=== PATIENT | male | born 1995 | race Caucasian/White ===

== ENCOUNTER 2021-02-14 13:37 | Inpatient (IN) | payer OTHER, MEDICARE, MEDICAID, SELFPAY ==
--- NOTE | ~2021-02-14 | XR_ITS ---
EXAMINATION: XR CHEST CLINICAL INFORMATION: Cough and wheezing COMPARISON: None TECHNIQUE: Frontal view of the chest was obtained. FINDINGS: No significant abnormality is noted involving the heart, lungs, mediastinum, bony thorax or soft tissues. XR/XR chest 1V IMPRESSION: Unremarkable chest examination.
--- NOTE | ~2021-02-14 | CT_ITS ---
EXAMINATION: CT CHEST WITHOUT CONTRAST CLINICAL INFORMATION: Wheezing. Leukocytosis. Shortness of breath. COMPARISON: Chest x-ray 02/15/2021 TECHNIQUE: Multidetector volumetric CT imaging of the chest was done. Axial MIP volume rendering provided. Sagittal and coronal reformatted images were obtained. This CT examination was performed using dose optimization techniques as appropriate, variously including the following: *Automated exposure control *Adjustment of mA and/or kV according to patient size (this includes techniques or standardized protocols for targeted exams where dose is matched to indication/reason for exam; i.e. extremities or head) *Use of iterative reconstruction technique DLP: 272 mGy-cm FINDINGS: LUNGS: There is a small groundglass opacity in the medial left upper lobe measuring approximately 1 x 2 x 1.5 cm Small focal pleural thickening adjacent 3 mm at the major fissure in the right lung axial image 375/ 637 series 7. Lungs are otherwise normally aerated. Central bronchial airways are open. No bronchiectasis. No interstitial lung disease. MEDIASTINUM: No mediastinal mass or significant lymphadenopathy. The heart size is normal. No pericardial effusion. PLEURA: There is no pleural effusion. No pleural mass or thickening. AXILLA: No lymphadenopathy. UPPER ABDOMEN: Unremarkable. OSSEOUS STRUCTURES: Unremarkable. CT/CT chest wo con IMPRESSION: 1 x 2 x 1.5 cm groundglass opacity in the medial left upper lobe. Nonspecific. Could be related to inflammation or infection. Consider follow-up CAT scan in 3 months. The Fleischner Society recommendations for incidental sub-solid pulmonary nodules are as follows: Solitary pure ground glass nodule < or = to 5 mm: No follow up needed. Solitary pure ground glass nodule > 5 mm: Follow up CT at 3 months; if unchanged, annual CT for at least 3 years. Solitary part-solid nodule: Follow up CT at 3 months; if persistent and solid component < 5 mm, annual CT for at least 3 years. If persistent and solid component > or = 5 mm, biopsy or resection. Multiple pure ground glass sub-solid nodules < or = to 5mm: CT at 2 and 4 years. Multiple pure ground glass sub-solid nodules > 5mm, no dominant lesion: Follow up CT at 3 months; if unchanged, annual CT for at least 3 years. Dominant nodule(s) with part-solid or solid component: Follow up CT at 3 months; if persistent, biopsy or resection.
[2021-02-14 13:43] VITALS: BP 150/60; BP 159/119; PULSE 88; PULSE 98; RESP 18; TEMP 36.4; O2SAT 96; O2SAT 98; BMI 32.1
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
[2021-02-14 14:41] LABS: COVID-19 Test Negative (Negative)
--- NOTE | 2021-02-14 14:58 | PHA.MEDREC ---
Pharmacy Consult ? Medication Reconciliation Pharmacy has completed the medication reconciliation. Patient only reports taking prozac and benadryl 3-5 times a week, but takes them together. Thanks Luis Giraldo Pharm D
[2021-02-14 15:04] LABS: Amphetamine Screen Urine Not Detected (Not Detect); Barbiturates, Urine Not Detected (Not Detect); Benzodiazepines Screen Urine Not Detected (Not Detect); Cocaine Screen Urine Not Detected (Not Detect); Fentanyl, urine Not Detected (Not Detect); Opiate Screen Urine Not Detected (Not Detect); Phencyclidine Screen Urine Not Detected (Not Detect)
[2021-02-14 15:09] LABS: Cannabinoid Screen Urine POSITIVE (Not Detect)
[2021-02-14 15:31] VITALS: BP 132/91
[2021-02-14 15:50] LABS: MANUAL DIFF FLAG NO
[2021-02-14 15:51] LABS: Basophils Absolute Auto 0.1 X10*3/uL (0.0-0.2); Basophils Percent Auto 0.4 % (0-2); Eosinophils Absolute Auto 0.4 X10*3/uL (0.0-0.4); Eosinophils Percent Auto 2.9 % (0-4); Hematocrit 48.5 % (42.0-52.0); Hemoglobin 16.5 g/dl (14.0-18.0); Imm Gran Abs Auto 0.04 X10*3/uL (0.00-0.03); Imm Gran Pct Auto 0.3 % (0.0-0.4); Lymphocytes Absolute Auto 1.9 X10*3/uL (1.2-4.9); Lymphocytes Percent Auto 14.3 % (20-40); Mean Corpuscular Hemoglobin 28.7 pg (27.0-33.0); Mean Corpuscular Volume 84.3 fL (80.0-98.0); Mean Platelet Volume 10.9 fL (9.4-12.4); Monocytes Absolute Auto 0.9 X10*3/uL (0.1-1.2); Monocytes Percent Auto 6.7 % (2-11); Neutrophils Absolute Auto 10.1 x10*3/uL (2.0-8.3); Neutrophils Percent Auto 75.4 % (45-73); Platelet Count 275 X10*3/uL (160-400); Red Blood Count 5.75 X10*6/uL (4.60-5.80); Red Cell Distribution Width 12.8 % (11.0-16.0); White Blood Count 13.4 X10*3/uL (4.8-10.8)
[2021-02-14 16:09] LABS: Ethanol < 10 mg/dL
[2021-02-14 16:13] LABS: Alanine Aminotransferase 14 U/L (0-40); Albumin Level 4.5 g/dL (3.5-5.0); Alkaline Phosphatase 75 U/L (39-117); Anion Gap 11 (12-20); Aspartate Amino Transferase 19 U/L (5-37); Bilirubin Total 0.5 mg/dL (0.0-1.0); Blood Urea Nitrogen 7 mg/dL (9-16); Calcium 9.9 mg/dL (8.4-10.2); Carbon Dioxide 25 mmol/L (22-29); Chloride 107 mmol/L (96-108); Creatinine Clr Calc Pharmacy 155.9; Estimated Glomerular Filt Rate > 60; Glucose Random 110 mg/dL (60-115); Potassium 3.9 mmol/L (3.3-5.1); Sodium 139 mmol/L (135-145); Total Protein 7.6 g/dL (6.5-8.0)
[2021-02-14] MEDS: diphenhydrAMINE HCL 25 MG TABLET 50 MG PO (20:34)
[2021-02-14] MEDS: FLUoxetine HCl 20 MG CAPSULE 60 MG PO (20:34)
[2021-02-14] MEDS: Albuterol Sulfate 90 MCG 8 GM INHALER 2 PUFF INHALE (20:34)
[2021-02-15] VITALS (8 sets, daily range): BP systolic 119–150; BP diastolic 76–98; PULSE 95–122; RESP 16–22; TEMP 36.3–36.9; O2SAT 90–96
--- NOTE | 2021-02-15 06:12 | PC.NURSE ---
pt is now in the general area of the pod and is asking if he could use his inhaler., pt states since he had his room door closed and has not smoked cig or dallin in over one week he is having a slight cough upon waking, lung alston have fine wheezing in upper lobes clears with clearing his throat.
--- NOTE | 2021-02-15 06:23 | PC.NURSE ---
provider made aware of the pt request to use his inhaler again. no orders received and will monitor the pt. pt displays no s/s of sob or resp distress, skin pink warm and dry. pt clearing his throat being a smoker. will up date in report.
[2021-02-15] MEDS: Albuterol Sulfate 90 MCG 8 GM INHALER 2 PUFF INHALE ×4 (07:30→23:37)
--- NOTE | 2021-02-15 09:09 | PC.NURSE ---
7am Patient sitting in common area. Calm and cooperative, skin pWD, ambulates with steady gait. Is aware of bedsearch status. Requesting use of inhailer. Pt offered and declined nicotine replacement. Pt used inhaler and spacer with good effect at 7:30. Provider to correct med order to q4 HR PRN use.
--- NOTE | 2021-02-15 10:30 | PC.NURSE ---
has been seen by N for MSU. continues to be inpatient bedsearch. aprox 105 pt c/o increased SOB. Has audible wheezing, moderate air movement in all Lung alston, slight diaphoresis and dry cough. saO2 92% HR110 requesting inhailer but isn't due untill 1130. provider aware.
[2021-02-15] MEDS: Albuterol/Iprat 2.5/0.5MG 3 ML AMPUL.NEB INHALE (10:45)
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
--- NOTE | 2021-02-15 15:12 | PC.NURSE ---
slight increased work of breathing. LS moderate wheezing and good air movement. provider aware and duoneb ordered. Skin pwd. no diaphoresis.
[2021-02-15] MEDS: Albuterol Sulfate (0.083%) 2.5 MG/3 ML VIAL.NEB 5 MG INHALE (15:45)
--- NOTE | 2021-02-15 19:50 | PC.NURSE ---
increased WOB, slightly diaphoretic, pale, wheezing. provider aware and additional meds ordered. sao2 90% HR 122
[2021-02-15] MEDS: predniSONE 20 MG TABLET 60 MG PO (19:57)
[2021-02-15] MEDS: Fluticasone Propionate 100 MCG BLST.W.DEV 1 PUFF INHALE (20:39)
[2021-02-15] MEDS: FLUoxetine HCl 20 MG CAPSULE 60 MG PO (20:40)
--- NOTE | 2021-02-15 20:47 | PC.NURSE ---
after xopenex, prednisone, and flovent pt reports feeling much better. color is improved. no diaphoresis. ambulatory in department w/o SOB. declined Benadryl b/c i think it made my breathing worse last night
[2021-02-16 03:18] VITALS: BP 134/81; PULSE 109; RESP 17; TEMP 36.8; O2SAT 92
--- NOTE | 2021-02-16 06:13 | PC.NURSE ---
Patient did not sleep whole night, tossing turning, patient is currently exhibiting asthmatic exacerbation, coughing and wheezing, administered Ventolin 2 puff x 2 during overnight shift with + effect, VS at baseline with SpO2 at 93% at RA, patient's thought process coherent, patient's disposition section 12 inpatient bed search, behavior appropriate, medication compliant, will continue to monitor.
[2021-02-16] MEDS: Fluticasone Propionate 100 MCG BLST.W.DEV 1 PUFF INHALE ×2 (07:26→20:33)
--- NOTE | 2021-02-16 07:28 | PC.NURSE ---
patient appears to remain at rest at present respirations are even and unlabored, patient appears in no distress
[2021-02-16] MEDS: predniSONE 20 MG TABLET 60 MG PO (07:55)
[2021-02-16 07:57] VITALS: BP 129/74; PULSE 112; RESP 13; TEMP 37.2; O2SAT 92
[2021-02-16] MEDS: Albuterol Sulfate 90 MCG 8 GM INHALER 2 PUFF INHALE ×3 (08:53→17:25)
[2021-02-16] MEDS: FLUoxetine HCl 20 MG CAPSULE 60 MG PO (20:32)
[2021-02-16] MEDS: diphenhydrAMINE HCL 25 MG TABLET 50 MG PO (20:33)
[2021-02-17] MEDS: Albuterol Sulfate 90 MCG 8 GM INHALER 2 PUFF INHALE ×5 (03:41→20:38)
[2021-02-17 03:44] VITALS: BP 137/81; PULSE 101; RESP 18; TEMP 36.4; O2SAT 92
--- NOTE | 2021-02-17 06:04 | PC.NURSE ---
Patient slept through the night, no distress observed/reported, patient had brief episode of coughing PRN Ventolin 2 puff at 0341 with + effect, behavior appropriate, medication compliant, VSS, disposition is section 12 inpatient bed search, will continue to monitor.
--- NOTE | 2021-02-17 07:17 | PC.NURSE ---
patient appears to remain at rest at present respirations are even and unlabored, patient appears in no distress
[2021-02-17] MEDS: predniSONE 20 MG TABLET 60 MG PO (07:49)
[2021-02-17] MEDS: Fluticasone Propionate 100 MCG BLST.W.DEV 1 PUFF INHALE ×2 (07:49→20:38)
--- NOTE | 2021-02-17 12:54 | PC.NURSE ---
mother (chelly) left a temp phone number of [phone]
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
--- NOTE | 2021-02-17 13:52 | ECG_ITS ---
Test Reason : medclearance Blood Pressure : / mmHG Vent. Rate : 083 BPM Atrial Rate : 083 BPM P-R Int : 142 ms QRS Dur : 100 ms QT Int : 362 ms P-R-T Axes : 052 083 003 degrees QTc Int : 425 ms Normal sinus rhythm Normal ECG When compared with ECG of 20-JAN-2018 17:33, No significant change was found Referred By: Padmini Rodriguez Electronically Signed By:TRACEY PULIDO
[2021-02-17 17:04] VITALS: BP 141/80; PULSE 96; RESP 20; TEMP 36.1; O2SAT 94
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
[2021-02-17 20:16] VITALS: BP 117/88; PULSE 82; RESP 18; TEMP 37.1; O2SAT 93
[2021-02-17] MEDS: FLUoxetine HCl 20 MG CAPSULE 60 MG PO (20:38)
[2021-02-17] MEDS: diphenhydrAMINE HCL 25 MG TABLET 50 MG PO (20:38)
[2021-02-18] MEDS: Albuterol Sulfate 90 MCG 8 GM INHALER 2 PUFF INHALE ×2 (04:15→14:07)
[2021-02-18 08:24] VITALS: BP 147/80; PULSE 93; RESP 16; TEMP 36.3; O2SAT 91
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
[2021-02-18] MEDS: Fluticasone Propionate 100 MCG BLST.W.DEV 1 PUFF INHALE (08:29)
[2021-02-18] MEDS: predniSONE 20 MG TABLET 60 MG PO (08:30)
--- NOTE | 2021-02-18 09:31 | MHC.CLN ---
NUTRITION PEANUT ALLERGY, SEVERE, ANAPHYLAXIS PER MEDICAL RECORD. PATIENT STATED THAT HE EATS PEANUTS. DINING SERVICES AWARE OF PEANUT ALLERGY AND SIGN PRESENT ON UNIT DOOR PEANUT ALLERGY ON UNIT . CONTINUE WITH PEANUT ALLERGY. REPORTED THAT LOST 40# OVER A YEAR. NO PRIOR WEIGHTS VIEWED. CURRENT APPETITE GOOD.
[2021-02-18 10:53] LABS: MANUAL DIFF FLAG NO
[2021-02-18 10:56] LABS: Basophils Absolute Auto 0.1 X10*3/uL (0.0-0.2); Basophils Percent Auto 0.6 % (0-2); Eosinophils Absolute Auto 0.5 X10*3/uL (0.0-0.4); Eosinophils Percent Auto 4.5 % (0-4); Hematocrit 46.7 % (42.0-52.0); Hemoglobin 16.1 g/dl (14.0-18.0); Imm Gran Abs Auto 0.04 X10*3/uL (0.00-0.03); Imm Gran Pct Auto 0.3 % (0.0-0.4); Lymphocytes Absolute Auto 1.5 X10*3/uL (1.2-4.9); Lymphocytes Percent Auto 12.6 % (20-40); Mean Corpuscular HGB Conc 34.5 g/dl (31.0-36.0); Mean Corpuscular Hemoglobin 29.3 pg (27.0-33.0); Mean Corpuscular Volume 85.1 fL (80.0-98.0); Mean Platelet Volume 10.6 fL (9.4-12.4); Monocytes Absolute Auto 0.6 X10*3/uL (0.1-1.2); Monocytes Percent Auto 4.8 % (2-11); Neutrophils Absolute Auto 9.1 x10*3/uL (2.0-8.3); Neutrophils Percent Auto 77.2 % (45-73); Platelet Count 257 X10*3/uL (160-400); Red Blood Count 5.49 X10*6/uL (4.60-5.80); White Blood Count 11.8 X10*3/uL (4.8-10.8)
[2021-02-18 20:16] VITALS: BP 125/60; PULSE 79; RESP 16; TEMP 36.6; O2SAT 97
[2021-02-18] MEDS: OLANZapine ODT 10 MG TAB.RAPDIS 20 MG TRANSLINGU (20:38)
[2021-02-18] MEDS: diphenhydrAMINE HCL 25 MG TABLET 50 MG PO (20:38)
[2021-02-19 08:39] LABS: Estimated Average Glucose 108 mg/dL; Hemoglobin A1c % 5.4 %
[2021-02-19] MEDS: Fluticasone Propionate 100 MCG BLST.W.DEV 1 PUFF INHALE ×2 (08:46→20:35)
[2021-02-19] MEDS: predniSONE 20 MG TABLET 60 MG PO (08:46)
[2021-02-19 08:51] VITALS: BP 117/64; PULSE 82; RESP 16; TEMP 36.8; O2SAT 93
[2021-02-19 09:14] LABS: Cholesterol 160 mg/dL; HDL Cholesterol 48 mg/dL; LDL Cholesterol Calculated 90 mg/dl; Triglycerides 111 mg/dL
[2021-02-19] MEDS: Albuterol Sulfate 90 MCG 8 GM INHALER 2 PUFF INHALE ×2 (09:49→14:08)
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
[2021-02-19 20:31] VITALS: BP 146/79; PULSE 95; TEMP 36.9; O2SAT 95
[2021-02-19] MEDS: OLANZapine ODT 10 MG TAB.RAPDIS 20 MG TRANSLINGU (20:33)
[2021-02-19] MEDS: diphenhydrAMINE HCL 25 MG TABLET 50 MG PO (20:34)
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
[2021-02-20] MEDS: Fluticasone Propionate 100 MCG BLST.W.DEV 1 PUFF INHALE (21:08)
[2021-02-20] MEDS: diphenhydrAMINE HCL 25 MG TABLET 50 MG PO (21:08)
[2021-02-20] MEDS: OLANZapine ODT 10 MG TAB.RAPDIS 30 MG TRANSLINGU (21:08)
[2021-02-21] MEDS: Fluticasone Propionate 100 MCG BLST.W.DEV 1 PUFF INHALE ×2 (08:21→21:24)
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
[2021-02-21 20:44] VITALS: BP 180/92; PULSE 102; RESP 20; TEMP 36.8; O2SAT 95
[2021-02-21] MEDS: OLANZapine ODT 10 MG TAB.RAPDIS 30 MG TRANSLINGU (21:23)
[2021-02-21] MEDS: diphenhydrAMINE HCL 25 MG TABLET 50 MG PO (21:23)
[2021-02-22 06:00] VITALS: BP 137/92; PULSE 114; RESP 16; TEMP 36.6; O2SAT 97
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
[2021-02-22] MEDS: diphenhydrAMINE HCL 25 MG TABLET 50 MG PO (21:16)
[2021-02-22] MEDS: OLANZapine ODT 10 MG TAB.RAPDIS 30 MG TRANSLINGU (21:16)
[2021-02-22] MEDS: Fluticasone Propionate 100 MCG BLST.W.DEV 1 PUFF INHALE (21:18)
[2021-02-22 21:30] VITALS: RESP 18
[2021-02-23 09:50] VITALS: BP 143/93; PULSE 114; RESP 16; TEMP 36.7; O2SAT 95
[2021-02-23] MEDS: Fluticasone Propionate 100 MCG BLST.W.DEV 1 PUFF INHALE ×2 (09:50→20:53)
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
[2021-02-23] MEDS: diphenhydrAMINE HCL 25 MG TABLET 50 MG PO (20:52)
[2021-02-23] MEDS: OLANZapine ODT 10 MG TAB.RAPDIS 30 MG TRANSLINGU (20:53)
[2021-02-23 21:03] VITALS: BP 134/82; PULSE 110; TEMP 36.6; O2SAT 95
[2021-02-24 08:10] VITALS: BP 136/91; PULSE 105; RESP 17; TEMP 36.7; O2SAT 96
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
[2021-02-24] MEDS: Fluticasone Propionate 100 MCG BLST.W.DEV 1 PUFF INHALE ×2 (09:45→20:20)
[2021-02-24] MEDS: OLANZapine ODT 10 MG TAB.RAPDIS 30 MG TRANSLINGU (20:16)
[2021-02-24] MEDS: diphenhydrAMINE HCL 25 MG TABLET 50 MG PO (20:16)
[2021-02-24 21:15] VITALS: BP 143/96; PULSE 123; TEMP 37.1
[2021-02-25] MEDS: Fluticasone Propionate 100 MCG BLST.W.DEV 1 PUFF INHALE (08:14)
[2021-02-25 08:16] VITALS: BP 164/93; PULSE 103; RESP 17; TEMP 36.7; O2SAT 93
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
[2021-02-25 18:11] VITALS: BP 171/94; PULSE 128; RESP 17; TEMP 36.8; O2SAT 97
[2021-02-25 19:55] VITALS: BP 156/86; PULSE 118; RESP 20; TEMP 37.1; O2SAT 94
[2021-02-25] MEDS: diphenhydrAMINE HCL 25 MG TABLET 50 MG PO (20:09)
[2021-02-25] MEDS: OLANZapine ODT 10 MG TAB.RAPDIS 30 MG TRANSLINGU (20:09)
[2021-02-26 08:19] VITALS: BP 145/97; PULSE 111; RESP 16; TEMP 36.7; O2SAT 97
[2021-02-26 11:36] VITALS: BMI 30.9
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
[2021-02-26] MEDS: diphenhydrAMINE HCL 25 MG TABLET 50 MG PO (20:11)
[2021-02-26] MEDS: OLANZapine ODT 10 MG TAB.RAPDIS 30 MG TRANSLINGU (20:11)
[2021-02-26 20:15] VITALS: BP 133/66; PULSE 119; TEMP 36.4; O2SAT 96
[2021-02-27] MEDS: Fluticasone Propionate 100 MCG BLST.W.DEV 1 PUFF INHALE (10:34)
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
== END 2021-02-27 13:06 | disposition home or self-care (01) | DRG 750 ==
LOC: HO.ED 02-17 17:23 → HO.PADLT16 02-17 18:04
PROVIDERS: Physician Assistant; Admitting Provider Psychiatry & Neurology Psychiatry; Emergency Provider Emergency Medicine; PCP Hospitalist; Visit Provider Social Worker
DX: F25.0 Schizoaffective disorder, bipolar type (principal); Z20.822 Contact with and (suspected) exposure to COVID-19; Z79.51 Long term (current) use of inhaled steroids; Z79.899 Other long term (current) drug therapy
CPT/HCPCS: 36415; 71045; 71250; 80053; 80061; 80307; 82077; 83036; 85025; 87635; 93005; 99285; Q0163

== ENCOUNTER 2021-03-20 14:43 | Inpatient (IN) | payer OTHER, MEDICARE, MEDICAID, SELFPAY ==
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
[2021-03-20 15:17] VITALS: BP 150/100; BP 154/80; PULSE 108; PULSE 97; RESP 18; TEMP 36.7; O2SAT 98; BMI 32.0
[2021-03-20 16:19] LABS: COVID-19 Test Negative (Negative); IDNOW Serial# 9DD0AD1C
[2021-03-20 19:25] LABS: MANUAL DIFF FLAG NO
[2021-03-20 19:27] LABS: Basophils Absolute Auto 0.1 X10*3/uL (0.0-0.2); Basophils Percent Auto 0.6 % (0-2); Eosinophils Absolute Auto 0.7 X10*3/uL (0.0-0.4); Hematocrit 43.3 % (42.0-52.0); Hemoglobin 14.7 g/dl (14.0-18.0); Imm Gran Abs Auto 0.04 X10*3/uL (0.00-0.03); Imm Gran Pct Auto 0.4 % (0.0-0.4); Lymphocytes Absolute Auto 2.5 X10*3/uL (1.2-4.9); Lymphocytes Percent Auto 24.7 % (20-40); Mean Corpuscular HGB Conc 33.9 g/dl (31.0-36.0); Mean Corpuscular Hemoglobin 29.5 pg (27.0-33.0); Mean Corpuscular Volume 86.8 fL (80.0-98.0); Mean Platelet Volume 10.6 fL (9.4-12.4); Monocytes Absolute Auto 1.1 X10*3/uL (0.1-1.2); Monocytes Percent Auto 10.3 % (2-11); Neutrophils Absolute Auto 5.9 x10*3/uL (2.0-8.3); Platelet Count 251 X10*3/uL (160-400); Red Blood Count 4.99 X10*6/uL (4.60-5.80); Red Cell Distribution Width 13.2 % (11.0-16.0); White Blood Count 10.3 X10*3/uL (4.8-10.8)
[2021-03-20 19:40] LABS: Ethanol < 10 mg/dL
[2021-03-20 19:46] LABS: Alanine Aminotransferase 41 U/L (0-40); Alkaline Phosphatase 64 U/L (39-117); Anion Gap 8 (12-20); Aspartate Amino Transferase 25 U/L (5-37); Bilirubin Total 0.3 mg/dL (0.0-1.0); Blood Urea Nitrogen 12 mg/dL (9-16); Calcium 9.2 mg/dL (8.4-10.2); Carbon Dioxide 29 mmol/L (22-29); Chloride 108 mmol/L (96-108); Creatinine Clr Calc Pharmacy 152.9; Estimated Glomerular Filt Rate > 60; Glucose Random 94 mg/dL (60-115); Potassium 4.1 mmol/L (3.3-5.1); Sodium 141 mmol/L (135-145); Total Protein 6.8 g/dL (6.5-8.0)
[2021-03-20 20:24] LABS: Valproate < 2.0 mcg/mL (50.0-100.0)
[2021-03-20] MEDS: OLANZapine 10 MG TABLET 30 MG PO (21:03)
--- NOTE | 2021-03-21 | ECG_ITS ---
Test Reason : med clearance Blood Pressure : / mmHG Vent. Rate : 084 BPM Atrial Rate : 084 BPM P-R Int : 166 ms QRS Dur : 098 ms QT Int : 364 ms P-R-T Axes : 064 077 020 degrees QTc Int : 430 ms Sinus rhythm with marked sinus arrhythmia Otherwise normal ECG When compared with ECG of 17-FEB-2021 13:52, No significant change was found Referred By: Erik White Electronically Signed By:Venkatesh Owen
[2021-03-21 05:12] VITALS: BP 149/80; PULSE 73; RESP 20; TEMP 36.8; O2SAT 95
--- NOTE | 2021-03-21 05:52 | PC.NURSE ---
Patient slept through the night, no distress observed/reported, urine pending at this time, medication compliant, behavior appropriate and supportive here but was observed agitated over phone call with his mother, MAYRA assessed the patient, recommended respite bed search, if patient decline or refused the respite plan, patient's disposition will be changed to inpatient bed search, appetite good, elimination intact, gait independent, VSS, will continue to monitor.
[2021-03-21 06:44] LABS: Amphetamine Screen Urine Not Detected (Not Detect); Barbiturates, Urine Not Detected (Not Detect); Benzodiazepines Screen Urine Not Detected (Not Detect); Cannabinoid Screen Urine POSITIVE (Not Detect); Cocaine Screen Urine Not Detected (Not Detect); Fentanyl, urine Not Detected (Not Detect); Opiate Screen Urine Not Detected (Not Detect); Phencyclidine Screen Urine Not Detected (Not Detect)
--- NOTE | 2021-03-21 07:05 | PC.NURSE ---
patient appears to remain at rest at present, respirations are even and unlabored, patient appears in no distress
--- NOTE | 2021-03-21 14:31 | PC.NURSE ---
patient observed making angry sounding phone calls to mother.
--- NOTE | 2021-03-21 16:24 | PC.NURSE ---
client is doing some random calling out periodically.
[2021-03-21 17:52] VITALS: BMI 26.4
[2021-03-21 18:00] VITALS: BP 140/75; PULSE 97; RESP 18; TEMP 36.9; O2SAT 95
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
[2021-03-21 20:01] VITALS: BP 131/78; PULSE 93; RESP 16; TEMP 36.8; O2SAT 96
[2021-03-21] MEDS: OLANZapine 10 MG TABLET 30 MG PO (20:44)
[2021-03-22 08:46] LABS: Alanine Aminotransferase 50 U/L (0-40); Albumin Level 4.4 g/dL (3.5-5.0); Alkaline Phosphatase 66 U/L (39-117); Anion Gap 14 (12-20); Aspartate Amino Transferase 46 U/L (5-37); Bilirubin Total 0.6 mg/dL (0.0-1.0); Blood Urea Nitrogen 14 mg/dL (9-16); Calcium 9.7 mg/dL (8.4-10.2); Carbon Dioxide 26 mmol/L (22-29); Chloride 106 mmol/L (96-108); Cholesterol 187 mg/dL; Creatinine Clr Calc Pharmacy 132.9; Estimated Glomerular Filt Rate > 60; Glucose Fasting 99 mg/dL (60-99); HDL Cholesterol 58 mg/dL; LDL Cholesterol Calculated 106 mg/dl; Potassium 4.8 mmol/L (3.3-5.1); Sodium 141 mmol/L (135-145); Total Protein 8.2 g/dL (6.5-8.0); Triglycerides 116 mg/dL
[2021-03-22 09:00] VITALS: BP 160/92; PULSE 102; RESP 18; TEMP 36.6; O2SAT 95
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
[2021-03-22] MEDS: LORazepam 1 MG TABLET PO (11:11)
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
[2021-03-22 18:00] VITALS: BP 141/78; PULSE 99; RESP 18; TEMP 36.7; O2SAT 97
[2021-03-22] MEDS: OLANZapine 10 MG TABLET 30 MG PO (20:23)
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
--- NOTE | 2021-03-22 20:45 | PC.NURSE ---
Patient submitted 3 day note.
[2021-03-23 08:00] VITALS: BP 147/88; PULSE 106; TEMP 36.4; O2SAT 95
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
[2021-03-23 21:12] VITALS: BP 132/87; PULSE 97; TEMP 36.5; O2SAT 96
[2021-03-23] MEDS: OLANZapine 10 MG TABLET 30 MG PO (21:14)
[2021-03-24 08:00] VITALS: BP 155/92; PULSE 116; TEMP 36.4; O2SAT 95
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
[2021-03-24] MEDS: OLANZapine 10 MG TABLET 30 MG PO (21:09)
[2021-03-24 21:17] VITALS: BP 142/83; PULSE 98; RESP 16; TEMP 36.7; O2SAT 94
[2021-03-25 08:30] VITALS: BP 132/67; PULSE 95; RESP 16; TEMP 36.2; O2SAT 96
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
[2021-03-25] MEDS: LORazepam 1 MG TABLET PO (18:31)
[2021-03-25 20:52] VITALS: BP 122/70; PULSE 107; RESP 16; TEMP 36.3; O2SAT 97
[2021-03-25] MEDS: OLANZapine 10 MG TABLET 30 MG PO (21:09)
[2021-03-26 07:00] VITALS: BMI 35.4
[2021-03-26 08:45] VITALS: BP 129/80; PULSE 101; RESP 16; TEMP 36.6; O2SAT 97
[2021-03-26] MEDS: amLODIPine Besylate 2.5 MG TABLET PO (09:58)
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
[2021-03-26 18:00] VITALS: BP 148/64; PULSE 91; TEMP 36.6
[2021-03-26] MEDS: OLANZapine 10 MG TABLET 30 MG PO (20:14)
[2021-03-26] MEDS: HaloperidoL 5 MG TABLET PO (20:15)
[2021-03-27 06:30] VITALS: BP 119/54; PULSE 88; RESP 18; TEMP 36.1; O2SAT 96
[2021-03-27 08:45] VITALS: BP 135/73; TEMP 27.2
[2021-03-27] MEDS: amLODIPine Besylate 2.5 MG TABLET PO (09:10)
--- NOTE | 2021-03-27 13:27 | P.PNPSI_ITS ---
Subjective Subjective Date of Service: 03/27/21 Reason For Visit: psychotic agitation Subjective Notes: Conditional Voluntary Interim History: Pt cwith some suspiciousness towards staff, but mostly in bed, no interacting with peers. He reports he slept well at time, eating well. He denies SI/HI. He continues to agree to go to [facility] through [facility]. Medication Compliance: Yes Side effects from medications: No Review of Systems Review of Systems Constitutional : No Fever, No Chills ENT/Mouth : No Ear Pain, No Nasal Congestion, No sore throat Eyes: No Eye Pain, No Swelling, No Redness Cardiovascular : No Chest Pain, No SOB Respiratory : No Cough, No Sputum, No Dyspnea Gastrointestinal : No Nausea, No Vomiting, No Diarrhea, No Hematochezia, No Melena Genitourinary : No Dysuria, No Urinary Frequency, No Hematuria Musculoskeletal : No Myalgias Skin : No Skin Lesions, No rash Neuro : No Weakness, No Numbness, No Paresthesias, No Dizziness, No Headache Psych : positive Anxiety, no Depression, no SI/HI All other systems reviewed and are negative Yes all other systems are reviewed and are negative Mental Status Exam Mental Status Exam Narrative: Appearance: casually groomed, more visible in the unit, fair hygiene, in NAD Behavior:less guarded psychomotor: no agitation or retardation noted Speech:clear, normal rate/rhythm, spontaneous Thought process: largely linear and logical Thought content: no delusions or paranoia expressed, talking about how his mother deserves physical aggression Mood: fine Affect: constricted, irritable at times SI:none voiced HI:none voiced VH/AH: +AH of commentary on his life and actions Insight/judgment: poor x 2. Memory/cog: alert, oriented x 3. Diagnostics Vital Signs (24Hr): Vital Signs - 24 hr 03/26/21 18:00 03/27/21 06:30 03/27/21 08:45 Temperature 97.8 F 97 F 81 F L Pulse Rate 91 88 Respiratory Rate 18 Blood Pressure 148/64 H 119/54 L 135/73 Pulse Oximetry 96 BMI result Body Mass Index 35.4 Labs Results: 03/20/21 19:20 03/22/21 08:09 Medications Medications Current Medications Acetaminophen (Acetaminophen 325 Mg Tablet) 650 mg PO Q6H PRN PRN Reason: Headache/Pain Mild Scale (1-3) Al Hydroxide/Mg Hydroxide (Magnesium Hydrox/Alum Hydrox 30 Ml Oral.Susp) 30 ml PO Q6H PRN PRN Reason: Heartburn/Nausea Albuterol Sulfate (Albuterol Sulfate 90 Mcg 8 Gm Inhaler) 2 puff INHALE QID PRN PRN Reason: Wheezing Amlodipine Besylate (Amlodipine Besylate 2.5 Mg Tablet) 2.5 mg PO DAILY JUANJO; Protocol Last Admin: 03/27/21 09:10 Dose: 2.5 mg Documented by: Haloperidol (Haloperidol 5 Mg Tablet) 5 mg PO BEDTIME JUANJO Last Admin: 03/26/21 20:15 Dose: 5 mg Documented by: Hydroxyzine HCl (Hydroxyzine Hcl 25 Mg Tablet) 25 mg PO BEDTIME PRN PRN Reason: Anxiety Magnesium Hydroxide (Milk Of Magnesia 30 Ml Oral.Susp) 30 ml PO DAILY PRN PRN Reason: Constipation Olanzapine (Olanzapine 10 Mg Tablet) 30 mg PO BEDTIME [facility] Last Admin: 03/26/21 20:14 Dose: 30 mg Documented by: Trazodone HCl (Trazodone Hcl 50 Mg Tablet) 50 mg PO BEDTIME PRN PRN Reason: Insomnia Allergies Allergies Allergy/AdvReac Type Severity Reaction Status Date / Time peanut [PEANUTS] Allergy Severe ANAPHYLAXIS Verified 02/15/21 16:07 benztropine [From Cogentin] AdvReac Chest Pain Verified 02/16/21 13:12 Assessment & Plan Assessment & Plan (1) Schizoaffective disorder, bipolar type: Status: Acute Code(s): F25.0 - Schizoaffective disorder, bipolar type (2) Aggressive behavior, adult: Status: Acute Code(s): R46.89 - Other symptoms and signs involving appearance and behavior Assessment and Plan: Patient admitted on a conditional voluntary history this schizoaffective disord er unclear if patient has been taking olanzapine regularly has reportedly been physically aggressive and threatening toward his mother who he will edges has been forcing him not to move out so she can continue using his money. Patient denies thoughts of harm to others has [facility] case management. This point appears safe for patient to return home there is a history of longstanding complex relationship patient needs to be evaluated for safety to others admitted on a conditional PLAN:3 day notice, 15 minutes checks 1. Continue Olanzapine 30mg po qhs. Start hadol 5mg po qhs on 03/26 2. Obtain collateral information 3. Aftercare planning coordination of care with [facility]. I spent minutes with the patient and/or on the patient floor today, greater than?50% of which was spent counseling/coordinating care. Reason for contiued inpatient stay Substantial Risk for: inability to function
[2021-03-27 17:33] VITALS: BP 120/59; PULSE 99; TEMP 37
[2021-03-27] MEDS: OLANZapine 10 MG TABLET 30 MG PO (20:17)
[2021-03-27] MEDS: HaloperidoL 5 MG TABLET PO (20:17)
[2021-03-28 08:00] VITALS: BP 156/73; PULSE 99; TEMP 36.3; O2SAT 97
[2021-03-28] MEDS: amLODIPine Besylate 2.5 MG TABLET PO (08:50)
--- NOTE | 2021-03-28 13:01 | HO.PSYCHPN ---
Subjective Subjective Date of Service: 03/28/21 Reason For Visit: psychotic agitation Subjective Notes: Conditional Voluntary Interim History: Pt somewhat guarded, reports doing well. He reports sleeping and eating well. He denies SI/HI. He denies VH/AH. some suspiciousness towards staff, but mostly in bed, no interacting with peers. He reports he slept well at time, eating well. He denies SI/HI. He continues to agree to go to [facility] through [facility]. Review of Systems Review of Systems Constitutional : No Fever, No Chills ENT/Mouth : No Ear Pain, No Nasal Congestion, No sore throat Eyes: No Eye Pain, No Swelling, No Redness Cardiovascular : No Chest Pain, No SOB Respiratory : No Cough, No Sputum, No Dyspnea Gastrointestinal : No Nausea, No Vomiting, No Diarrhea, No Hematochezia, No Melena Genitourinary : No Dysuria, No Urinary Frequency, No Hematuria Musculoskeletal : No Myalgias Skin : No Skin Lesions, No rash Neuro : No Weakness, No Numbness, No Paresthesias, No Dizziness, No Headache Psych : positive Anxiety, no Depression, no SI/HI All other systems reviewed and are negative Yes all other systems are reviewed and are negative Mental Status Exam Mental Status Exam Narrative: Appearance: casually groomed, more visible in the unit, fair hygiene, in NAD Behavior:less guarded psychomotor: no agitation or retardation noted Speech:clear, normal rate/rhythm, spontaneous Thought process: largely linear and logical Thought content: no delusions or paranoia expressed, talking about how his mother deserves physical aggression Mood: fine Affect: constricted, irritable at times SI:none voiced HI:none voiced VH/AH: +AH of commentary on his life and actions Insight/judgment: poor x 2. Memory/cog: alert, oriented x 3. Diagnostics Vital Signs (24Hr): Vital Signs - 24 hr 03/28/21 18:00 03/29/21 06:00 Temperature 98.7 F 98.1 F Pulse Rate 108 H 90 Blood Pressure 131/75 133/76 Pulse Oximetry 98 BMI result Body Mass Index 35.4 Labs Results: 03/20/21 19:20 03/22/21 08:09 Medications Medications Current Medications Acetaminophen (Acetaminophen 325 Mg Tablet) 650 mg PO Q6H PRN PRN Reason: Headache/Pain Mild Scale (1-3) Al Hydroxide/Mg Hydroxide (Magnesium Hydrox/Alum Hydrox 30 Ml Oral.Susp) 30 ml PO Q6H PRN PRN Reason: Heartburn/Nausea Albuterol Sulfate (Albuterol Sulfate 90 Mcg 8 Gm Inhaler) 2 puff INHALE QID PRN PRN Reason: Wheezing Haloperidol (Haloperidol 5 Mg Tablet) 10 mg PO BEDTIME JUANJO Last Admin: 03/28/21 19:58 Dose: 10 mg Documented by: Hydroxyzine HCl (Hydroxyzine Hcl 25 Mg Tablet) 25 mg PO BEDTIME PRN PRN Reason: Anxiety Magnesium Hydroxide (Milk Of Magnesia 30 Ml Oral.Susp) 30 ml PO DAILY PRN PRN Reason: Constipation Olanzapine (Olanzapine 10 Mg Tablet) 30 mg PO BEDTIME [facility] Last Admin: 03/28/21 19:58 Dose: 30 mg Documented by: Trazodone HCl (Trazodone Hcl 50 Mg Tablet) 50 mg PO BEDTIME PRN PRN Reason: Insomnia Allergies Allergies Allergy/AdvReac Type Severity Reaction Status Date / Time peanut [PEANUTS] Allergy Severe ANAPHYLAXIS Verified 02/15/21 16:07 benztropine [From Cogentin] AdvReac Chest Pain Verified 02/16/21 13:12 Assessment & Plan Assessment & Plan (1) Schizoaffective disorder, bipolar type: Status: Acute Code(s): F25.0 - Schizoaffective disorder, bipolar type (2) Aggressive behavior, adult: Status: Acute Code(s): R46.89 - Other symptoms and signs involving appearance and behavior Assessment and Plan: Patient admitted on a conditional voluntary history this schizoaffective disorder unclear if patient has been taking olanzapine regularly has reportedly been physically aggressive and threatening toward his mother who he will edges has been forcing him not to move out so she can continue using his money. Patient denies thoughts of harm to others has [facility] case management. This point appears safe for patient to return home there is a history of longstanding complex relationship patient needs to be evaluated for safety to others admitted on a conditional PLAN:3 day notice, 15 minutes checks 1. Continue Olanzapine 30mg po qhs. Start hadol 5mg po qhs on 03/26 2. Obtain collateral information 3. Aftercare planning coordination of care with [facility]. I spent minutes with the patient and/or on the patient floor today, greater than?50% of which was spent counseling/coordinating care. Reason for contiued inpatient stay Substantial Risk for: harm to others and inability to function
[2021-03-28 18:00] VITALS: BP 131/75; PULSE 108; TEMP 37.1
[2021-03-28] MEDS: HaloperidoL 5 MG TABLET 10 MG PO (19:58)
[2021-03-28] MEDS: OLANZapine 10 MG TABLET 30 MG PO (19:58)
[2021-03-29 06:00] VITALS: BP 133/76; PULSE 90; TEMP 36.7; O2SAT 98
--- NOTE | 2021-03-29 11:03 | HO.PSYCHPN ---
Subjective Subjective Date of Service: 03/29/21 Reason For Visit: psychotic agitation Subjective Notes: Conditional Voluntary Interim History: Pt somewhat guarded, reports doing well. He reports he ahd phone call with mother and she said something very inappropriate. when asked what mother said to him, he states I don't want to say. He reports sleeping and eating well. He denies SI/HI. He denies VH/AH. some suspiciousness towards staff, but mostly in bed, no interacting with peers. He reports he slept well at time, eating well. He denies SI/HI. He continues to agree to go to [facility] through [employer]. He reports he does not believe he has HTN and declines amlodine. Review of Systems Review of Systems Constitutional : No Fever, No Chills ENT/Mouth : No Ear Pain, No Nasal Congestion, No sore throat Eyes: No Eye Pain, No Swelling, No Redness Cardiovascular : No Chest Pain, No SOB Respiratory : No Cough, No Sputum, No Dyspnea Gastrointestinal : No Nausea, No Vomiting, No Diarrhea, No Hematochezia, No Melena Genitourinary : No Dysuria, No Urinary Frequency, No Hematuria Musculoskeletal : No Myalgias Skin : No Skin Lesions, No rash Neuro : No Weakness, No Numbness, No Paresthesias, No Dizziness, No Headache Psych : positive Anxiety, no Depression, no SI/HI All other systems reviewed and are negative Yes all other systems are reviewed and are negative Mental Status Exam Mental Status Exam Narrative: Appearance: casually groomed, more visible in the unit, fair hygiene, in NAD Behavior:less guarded psychomotor: no agitation or retardation noted Speech:clear, normal rate/rhythm, spontaneous Thought process: largely linear and logical Thought content: no delusions or paranoia expressed, talking about how his mother deserves physical aggression Mood: fine Affect: constricted, irritable at times SI:none voiced HI:none voiced VH/AH: +AH of commentary on his life and actions Insight/judgment: poor x 2. Memory/cog: alert, oriented x 3. Diagnostics Vital Signs (24Hr): Vital Signs - 24 hr 03/28/21 18:00 03/29/21 06:00 Temperature 98.7 F 98.1 F Pulse Rate 108 H 90 Blood Pressure 131/75 133/76 Pulse Oximetry 98 BMI result Body Mass Index 35.4 Labs Results: 03/20/21 19:20 03/22/21 08:09 Medications Medications Current Medications Acetaminophen (Acetaminophen 325 Mg Tablet) 650 mg PO Q6H PRN PRN Reason: Headache/Pain Mild Scale (1-3) Al Hydroxide/Mg Hydroxide (Magnesium Hydrox/Alum Hydrox 30 Ml Oral.Susp) 30 ml PO Q6H PRN PRN Reason: Heartburn/Nausea Albuterol Sulfate (Albuterol Sulfate 90 Mcg 8 Gm Inhaler) 2 puff INHALE QID PRN PRN Reason: Wheezing Haloperidol (Haloperidol 5 Mg Tablet) 10 mg PO BEDTIME [facility] Last Admin: 03/28/21 19:58 Dose: 10 mg Documented by: Hydroxyzine HCl (Hydroxyzine Hcl 25 Mg Tablet) 25 mg PO BEDTIME PRN PRN Reason: Anxiety Magnesium Hydroxide (Milk Of Magnesia 30 Ml Oral.Susp) 30 ml PO DAILY PRN PRN Reason: Constipation Olanzapine (Olanzapine 10 Mg Tablet) 30 mg PO BEDTIME [facility] Last Admin: 03/28/21 19:58 Dose: 30 mg Documented by: Trazodone HCl (Trazodone Hcl 50 Mg Tablet) 50 mg PO BEDTIME PRN PRN Reason: Insomnia Allergies Allergies Allergy/AdvReac Type Severity Reaction Status Date / Time peanut [PEANUTS] Allergy Severe ANAPHYLAXIS Verified 02/15/21 16:07 benztropine [From Cogentin] AdvReac Chest Pain Verified 02/16/21 13:12 Assessment & Plan Assessment & Plan (1) Schizoaffective disorder, bipolar type: Status: Acute Code(s): F25.0 - Schizoaffective disorder, bipolar type (2) Aggressive behavior, adult: Status: Acute Code(s): R46.89 - Other symptoms and signs involving appearance and behavior Assessment and Plan: Patient admitted on a conditional voluntary history this schizoaffective disorder unclear if patient has been taking olanzapine regularly has reportedly been physically aggressive and threatening toward his mother who he will edges has been forcing him not to move out so she can continue using his money. Patient denies thoughts of harm to others has [facility] case management. This point appears safe for patient to return home there is a history of longstanding complex relationship patient needs to be evaluated for safety to others admitted on a conditional PLAN:3 day notice, 15 minutes checks 1. Continue Olanzapine 30mg po qhs. Increase haldol 10mg po qhs on 03/28 2. Obtain collateral information 3. Aftercare planning coordination of care with [facility]. I spent minutes with the patient and/or on the patient floor today, greater than?50% of which was spent counseling/coordinating care. Reason for contiued inpatient stay Substantial Risk for: harm to others and inability to function
[2021-03-29 18:00] VITALS: BP 163/80; PULSE 109
[2021-03-29] MEDS: hydrOXYzine HCL 25 MG TABLET PO (18:38)
[2021-03-29] MEDS: HaloperidoL 5 MG TABLET 10 MG PO (20:04)
[2021-03-29] MEDS: OLANZapine 10 MG TABLET 30 MG PO (20:04)
[2021-03-30 06:00] VITALS: BP 139/82; PULSE 104; RESP 18; TEMP 36.4; O2SAT 95
--- NOTE | 2021-03-30 11:47 | P.PNPSI_ITS ---
Subjective Subjective Date of Service: 03/30/21 Reason For Visit: psychotic agitation Subjective Notes: Conditional Voluntary Interim History: Pt mostly in his room, minimally engaging with peers. He reports sleeping and eating well. He denies SI/HI. He denies VH/AH. some suspiciousness towards staff, but mostly in bed, no interacting with peers. He reports he slept well at time, eating well. He denies SI/HI. He continues to agree to go to senior care through [facility]. He reports he does not believe he has HTN and declines amlodine. He talks with mother daily and this seems to upset him but would not discussed with this gag writer or TRAVIS fine. Medication Compliance: Yes Review of Systems Review of Systems Constitutional : No Fever, No Chills ENT/Mouth : No Ear Pain, No Nasal Congestion, No sore throat Eyes: No Eye Pain, No Swelling, No Redness Cardiovascular : No Chest Pain, No SOB Respiratory : No Cough, No Sputum, No Dyspnea Gastrointestinal : No Nausea, No Vomiting, No Diarrhea, No Hematochezia, No Melena Genitourinary : No Dysuria, No Urinary Frequency, No Hematuria Musculoskeletal : No Myalgias Skin : No Skin Lesions, No rash Neuro : No Weakness, No Numbness, No Paresthesias, No Dizziness, No Headache Psych : positive Anxiety, no Depression, no SI/HI All other systems reviewed and are negative Yes all other systems are reviewed and are negative Mental Status Exam Mental Status Exam Narrative: Appearance: casually groomed, more visible in the unit, fair hygiene, in NAD Behavior:less guarded psychomotor: no agitation or retardation noted Speech:clear, normal rate/rhythm, spontaneous Thought process: largely linear and logical Thought content: no delusions or paranoia expressed, talking about how his mother deserves physical aggression Mood: fine Affect: constricted, irritable at times SI:none voiced HI:none voiced VH/AH: +AH of commentary on his life and actions Insight/judgment: poor x 2. Memory/cog: alert, oriented x 3. Diagnostics Vital Signs (24Hr): Vital Signs - 24 hr 03/29/21 18:00 03/30/21 06:00 Temperature 97.6 F Pulse Rate 109 H 104 H Respiratory Rate 18 Blood Pressure 163/80 H 139/82 Pulse Oximetry 95 BMI result Body Mass Index 35.4 Labs Results: 03/20/21 19:20 01/02/22 08:09 Medications Medications Current Medications Acetaminophen (Acetaminophen 325 Mg Tablet) 650 mg PO Q6H PRN PRN Reason: Headache/Pain Mild Scale (1-3) Al Hydroxide/Mg Hydroxide (Magnesium Hydrox/Alum Hydrox 30 Ml Oral.Susp) 30 ml PO Q6H PRN PRN Reason: Heartburn/Nausea Albuterol Sulfate (Albuterol Sulfate 90 Mcg 8 Gm Inhaler) 2 puff INHALE QID PRN PRN Reason: Wheezing Haloperidol (Haloperidol 5 Mg Tablet) 10 mg PO BEDTIME J[facility]AN[facility] Last Admin: 03/29/21 20:04 Dose: 10 mg Documented by: Hydroxyzine HCl (Hydroxyzine Hcl 25 Mg Tablet) 25 mg PO BEDTIME PRN PRN Reason: Anxiety Last Admin: 03/29/21 18:38 Dose: 25 mg Documented by: Magnesium Hydroxide (Milk Of Magnesia 30 Ml Oral.Susp) 30 ml PO DAILY PRN PRN Reason: Constipation Olanzapine (Olanzapine 10 Mg Tablet) 30 mg PO BEDTIME [facility] Last Admin: 03/29/21 20:04 Dose: 30 mg Documented by: Trazodone HCl (Trazodone Hcl 50 Mg Tablet) 50 mg PO BEDTIME PRN PRN Reason: Insomnia Allergies Allergies Allergy/AdvReac Type Severity Reaction Status Date / Time peanut [PEANUTS] Allergy Severe ANAPHYLAXIS Verified 02/15/21 16:07 benztropine [From Cogentin] AdvReac Chest Pain Verified 02/16/21 13:12 Assessment & Plan Assessment & Plan (1) Schizoaffective disorder, bipolar type: Status: Acute Code(s): F25.0 - Schizoaffective disorder, bipolar type (2) Aggressive behavior, adult: Status: Acute Code(s): R46.89 - Other symptoms and signs involving appearance and behavior Assessment and Plan: Patient admitted on a conditional voluntary history this schizoaffective d isorder unclear if patient has been taking olanzapine regularly has reportedly been physically aggressive and threatening toward his mother who he will edges has been forcing him not to move out so she can continue using his money. Patient denies thoughts of harm to others has [facility] case management. This point appears safe for patient to return home there is a history of longstanding complex relationship patient needs to be evaluated for safety to others admitted on a conditional PLAN:3 day notice, 15 minutes checks 1. Continue Olanzapine 30mg po qhs. Increase haldol 10mg po qhs on 03/28 2. Obtain collateral information 3. Aftercare planning coordination of care with [facility]. I spent minutes with the patient and/or on the patient floor today, greater than?50% of which was spent counseling/coordinating care. Reason for contiued inpatient stay Substantial Risk for: harm to others
[2021-03-30 18:00] VITALS: BP 136/85; PULSE 104; TEMP 36.6; O2SAT 95
[2021-03-30] MEDS: HaloperidoL 5 MG TABLET 10 MG PO (20:25)
[2021-03-30] MEDS: OLANZapine 10 MG TABLET 30 MG PO (20:25)
[2021-03-30] MEDS: hydrOXYzine HCL 25 MG TABLET PO (20:33)
[2021-03-31 06:00] VITALS: BP 109/61; PULSE 89; RESP 18; TEMP 35.6; O2SAT 97
--- NOTE | 2021-03-31 08:14 | HO.PSYCHPN ---
Subjective Subjective Date of Service: 03/31/21 Reason For Visit: psychotic agitation Subjective Notes: Conditional Voluntary Interim History: Pt reports last night called 911 to ask police to not let mother be authorized user of his bank account. Pt reports talking with mother daily, he reports mother has made inappropriate comments to him but he will not elaborate. He denies voices but appears internally preoccupied, guarded at times. He reports less concerns about FBI or police going after him stating these were concerns his mother had more than him. He denies SI/HI. Slight improvement in hygiene, [facility]. Visible in the unit, minimally interactive with peers or staff but no behavioral concerns. Taking both haldol and olanzapine, states they help but unable to explain in what way. Medication Compliance: Yes Side effects from medications: No Attending Groups: No Review of Systems Acute medical concerns: No Review of Systems Review of Systems Constitutional : No Fever, No Chills ENT/Mouth : No Ear Pain, No Nasal Congestion, No sore throat Eyes: No Eye Pain, No Swelling, No Redness Cardiovascular : No Chest Pain, No SOB Respiratory : No Cough, No Sputum, No Dyspnea Gastrointestinal : No Nausea, No Vomiting, No Diarrhea, No Hematochezia, No Melena Genitourinary : No Dysuria, No Urinary Frequency, No Hematuria Musculoskeletal : No Myalgias Skin : No Skin Lesions, No rash Neuro : No Weakness, No Numbness, No Paresthesias, No Dizziness, No Headache Psych : positive Anxiety, no Depression, no SI/HI All other systems reviewed and are negative Yes all other systems are reviewed and are negative Mental Status Exam Mental Status Exam Narrative: Appearance: casually groomed, more visible in the unit, fair hygiene, in NAD Behavior:less guarded psychomotor: no agitation or retardation noted Speech:clear, normal rate/rhythm, spontaneous Thought process: largely linear and logical Thought content: no delusions or paranoia expressed, talking about how his mother deserves physical aggression Mood: fine Affect: constricted, irritable at times SI:none voiced HI:none voiced VH/AH: +AH of commentary on his life and actions Insight/judgment: poor x 2. Memory/cog: alert, oriented x 3. Diagnostics Vital Signs (24Hr): Vital Signs - 24 hr 04/01/21 06:00 Temperature 97.5 F Pulse Rate 89 Respiratory Rate 14 Blood Pressure 125/60 Pulse Oximetry 94 BMI result Body Mass Index 35.4 Labs Results: 03/20/21 19:20 03/22/21 08:09 Medications Medications Current Medications Acetaminophen (Acetaminophen 325 Mg Tablet) 650 mg PO Q6H PRN PRN Reason: Headache/Pain Mild Scale (1-3) Al Hydroxide/Mg Hydroxide (Magnesium Hydrox/Alum Hydrox 30 Ml Oral.Susp) 30 ml PO Q6H PRN PRN Reason: Heartburn/Nausea Albuterol Sulfate (Albuterol Sulfate 90 Mcg 8 Gm Inhaler) 2 puff INHALE QID PRN PRN Reason: Wheezing Haloperidol (Haloperidol 5 Mg Tablet) 10 mg PO BEDTIME JUANJO Last Admin: 03/31/21 21:50 Dose: 10 mg Documented by: Hydroxyzine HCl (Hydroxyzine Hcl 25 Mg Tablet) 25 mg PO BEDTIME PRN PRN Reason: Anxiety Last Admin: 03/30/21 20:33 Dose: 25 mg Documented by: Magnesium Hydroxide (Milk Of Magnesia 30 Ml Oral.Susp) 30 ml PO DAILY PRN PRN Reason: Constipation Olanzapine (Olanzapine 10 Mg Tablet) 30 mg PO BEDTIME JUANJO Last Admin: 03/31/21 21:50 Dose: 30 mg Documented by: Trazodone HCl (Trazodone Hcl 50 Mg Tablet) 50 mg PO BEDTIME PRN PRN Reason: Insomnia Allergies Allergies Allergy/AdvReac Type Severity Reaction Status Date / Time peanut [PEANUTS] Allergy Severe ANAPHYLAXIS Verified 02/15/21 16:07 benztropine [From Cogentin] AdvReac Chest Pain Verified 02/16/21 13:12 Assessment & Plan Assessment & Plan (1) Schizoaffective disorder, bipolar type: Status: Acute Code(s): F25.0 - Schizoaffective disorder, bipolar type (2) Aggressive behavior, adult: Status: Acute Code(s): R46.89 - Other symptoms and signs involving appearance and behavior Assessment and Plan: Patient admitted on a conditional voluntary history this schizoaffective disorder unclear if patient has been taking olanzapine regularly has reportedly been physically aggressive and threatening toward his mother who he will edges has been forcing him not to move out so she can continue using his money. Patient denies thoughts of harm to others has [facility] case management. This point appears safe for patient to return home there is a history of longstanding complex relationship patient needs to be evaluated for safety to others admitted on a conditional PLAN:3 day notice, 15 minutes checks 1. Continue Olanzapine 30mg po qhs. Continue haldol 10mg po qhs 2. Obtain collateral information 3. Aftercare planning coordination of care with [facility]. I spent minutes with the patient and/or on the patient floor today, greater than?50% of which was spent counseling/coordinating care. Reason for contiued inpatient stay Substantial Risk for: harm to others and inability to function
[2021-03-31] MEDS: HaloperidoL 5 MG TABLET 10 MG PO (21:50)
[2021-03-31] MEDS: OLANZapine 10 MG TABLET 30 MG PO (21:50)
[2021-04-01 06:00] VITALS: BP 125/60; PULSE 89; RESP 14; TEMP 36.4; O2SAT 94
--- NOTE | 2021-04-01 12:35 | HO.PSYCHPN ---
Subjective Subjective Date of Service: 04/01/21 Reason For Visit: psychotic agitation Subjective Notes: Conditional Voluntary Interim History: Pt reports sleeping well. He reports scaring mother did not elaborate as to what he means by this. He denies SI/HI. He has been more suspicious about mother stealing from him. Per mother (who spoke with TRAVIS Wolff)- pt has called more than 30 times, and has been threatening to kill her, mother told Mariella she is planning to renew restraining order, and that she is afraid of her life. Medication Compliance: Yes Side effects from medications: No Attending Groups: No Review of Systems Review of Systems Constitutional : No Fever, No Chills ENT/Mouth : No Ear Pain, No Nasal Congestion, No sore throat Eyes: No Eye Pain, No Swelling, No Redness Cardiovascular : No Chest Pain, No SOB Respiratory : No Cough, No Sputum, No Dyspnea Gastrointestinal : No Nausea, No Vomiting, No Diarrhea, No Hematochezia, No Melena Genitourinary : No Dysuria, No Urinary Frequency, No Hematuria Musculoskeletal : No Myalgias Skin : No Skin Lesions, No rash Neuro : No Weakness, No Numbness, No Paresthesias, No Dizziness, No Headache Psych : positive Anxiety, no Depression, no SI/HI All other systems reviewed and are negative Yes all other systems are reviewed and are negative Mental Status Exam Mental Status Exam Narrative: Appearance: casually groomed, more visible in the unit, fair hygiene, in NAD Behavior:less guarded psychomotor: no agitation or retardation noted Speech:clear, normal rate/rhythm, spontaneous Thought process: largely linear and logical Thought content: no delusions or paranoia expressed, talking about how his mother deserves physical aggression Mood: fine Affect: constricted, irritable at times SI:none voiced HI:none voiced VH/AH: +AH of commentary on his life and actions Insight/judgment: poor x 2. Memory/cog: alert, oriented x 3. Patient Appearance: Disheveled Patient Orientation: Person, Place, Time and Situation Level of Consciousness: Awake Patient Behavior: Appropriate Mood Description: Angry, Sad and Apprehensive Affect Description: Labile, Blunted and Apprehensive Memory Description: Intact Diagnostics Vital Signs (24Hr): Vital Signs - 24 hr 04/01/21 06:00 Temperature 97.5 F Pulse Rate 89 Respiratory Rate 14 Blood Pressure 125/60 Pulse Oximetry 94 BMI result Body Mass Index 35.4 Labs Results: 03/20/21 19:20 03/22/21 08:09 Medications Medications Current Medications Acetaminophen (Acetaminophen 325 Mg Tablet) 650 mg PO Q6H PRN PRN Reason: Headache/Pain Mild Scale (1-3) Al Hydroxide/Mg Hydroxide (Magnesium Hydrox/Alum Hydrox 30 Ml Oral.Susp) 30 ml PO Q6H PRN PRN Reason: Heartburn/Nausea Albuterol Sulfate (Albuterol Sulfate 90 Mcg 8 Gm Inhaler) 2 puff INHALE QID PRN PRN Reason: Wheezing Haloperidol (Haloperidol 5 Mg Tablet) 10 mg PO BEDTIME JUANJO Last Admin: 03/31/21 21:50 Dose: 10 mg Documented by: Hydroxyzine HCl (Hydroxyzine Hcl 25 Mg Tablet) 25 mg PO BEDTIME PRN PRN Reason: Anxiety Last Admin: 03/30/21 20:33 Dose: 25 mg Documented by: Magnesium Hydroxide (Milk Of Magnesia 30 Ml Oral.Susp) 30 ml PO DAILY PRN PRN Reason: Constipation Olanzapine (Olanzapine 10 Mg Tablet) 30 mg PO BEDTIME JUANJO Last Admin: 03/31/21 21:50 Dose: 30 mg Documented by: Trazodone HCl (Trazodone Hcl 50 Mg Tablet) 50 mg PO BEDTIME PRN PRN Reason: Insomnia Allergies Allergies Allergy/AdvReac Type Severity Reaction Status Date / Time peanut [PEANUTS] Allergy Severe ANAPHYLAXIS Verified 02/15/21 16:07 benztropine [From Cogentin] AdvReac Chest Pain Verified 02/16/21 13:12 Assessment & Plan Assessment & Plan (1) Schizoaffective disorder, bipolar type: Status: Acute Code(s): F25.0 - Schizoaffective disorder, bipolar type (2) Aggressive behavior, adult: Status: Acute Code(s): R46.89 - Other symptoms and signs involving appearance and behavior Assessment and Plan: Patient admitted on a conditional voluntary history this schizoaffective disorder unclear if patient has been taking olanzapine regularly has reportedly been physically aggressive and threatening toward his mother who he will edges has been forcing him not to move out so she can continue using his money. Patient denies thoughts of harm to others has [facility] case management. This point appears safe for patient to return home there is a history of longstanding complex relationship patient needs to be evaluated for safety to others admitted on a conditional PLAN:3 day notice, 15 minutes checks 1. Continue Olanzapine 30mg po qhs. Continue haldol 10mg po qhs. Consider mood stabilizer 2. Obtain collateral information 3. Aftercare planning coordination of care with [facility]. I spent minutes with the patient and/or on the patient floor today, greater than?50% of which was spent counseling/coordinating care. Reason for contiued inpatient stay Substantial Risk for: harm to others
[2021-04-01 18:55] VITALS: BP 143/90; PULSE 107; RESP 18; TEMP 36.1; O2SAT 97
[2021-04-01] MEDS: OLANZapine 10 MG TABLET 30 MG PO (20:46)
[2021-04-01] MEDS: HaloperidoL 5 MG TABLET 10 MG PO (20:46)
[2021-04-02 07:00] VITALS: BMI 36.0
--- NOTE | 2021-04-02 11:10 | P.PNPSI_ITS ---
Subjective Subjective Date of Service: 04/02/21 Reason For Visit: psychotic agitation Subjective Notes: Conditional Voluntary Interim History: Pt continues to make verbal threats to kill her and retaliate since she is not letting him come back. Pt signed 3 day notice hoping he could return to his mother's house. Pt informed that restraining order renewed and his mother verbalized fear for her life. He denies SI. In his room, poor hygiene. Medication Compliance: Yes Side effects from medications: No Review of Systems Review of Systems Constitutional : No Fever, No Chills ENT/Mouth : No Ear Pain, No Nasal Congestion, No sore throat Eyes: No Eye Pain, No Swelling, No Redness Cardiovascular : No Chest Pain, No SOB Respiratory : No Cough, No Sputum, No Dyspnea Gastrointestinal : No Nausea, No Vomiting, No Diarrhea, No Hematochezia, No Melena Genitourinary : No Dysuria, No Urinary Frequency, No Hematuria Musculoskeletal : No Myalgias Skin : No Skin Lesions, No rash Neuro : No Weakness, No Numbness, No Paresthesias, No Dizziness, No Headache Psych : positive Anxiety, no Depression, no SI/HI All other systems reviewed and are negative Yes all other systems are reviewed and are negative Mental Status Exam Mental Status Exam Narrative: Appearance: casually groomed, more visible in the unit, fair hygiene, in NAD Behavior:less guarded psychomotor: no agitation or retardation noted Speech:clear, normal rate/rhythm, spontaneous Thought process: largely linear and logical Thought content: no delusions or paranoia expressed, talking about how his mother deserves physical aggression Mood: fine Affect: constricted, irritable at times SI:none voiced HI:none voiced VH/AH: +AH of commentary on his life and actions Insight/judgment: poor x 2. Memory/cog: alert, oriented x 3. Patient Appearance: Disheveled Patient Orientation: Person, Place, Time and Situation Level of Consciousness: Awake Patient Behavior: Appropriate Mood Description: Angry, Sad and Apprehensive Affect Description: Labile, Blunted and Apprehensive Memory Description: Intact Diagnostics Vital Signs (24Hr): Vital Signs - 24 hr 04/02/21 18:00 Temperature 98 F Pulse Rate 109 H Blood Pressure 141/91 H BMI result Body Mass Index 36.0 Labs Results: 03/20/21 19:20 03/22/21 08:09 Medications Medications Current Medications Acetaminophen (Acetaminophen 325 Mg Tablet) 650 mg PO Q6H PRN PRN Reason: Headache/Pain Mild Scale (1-3) Al Hydroxide/Mg Hydroxide (Magnesium Hydrox/Alum Hydrox 30 Ml Oral.Susp) 30 ml PO Q6H PRN PRN Reason: Heartburn/Nausea Albuterol Sulfate (Albuterol Sulfate 90 Mcg 8 Gm Inhaler) 2 puff INHALE QID PRN PRN Reason: Wheezing Haloperidol (Haloperidol 5 Mg Tablet) 10 mg PO BEDTIME JUANJO Last Admin: 04/02/21 20:21 Dose: 10 mg Documented by: Hydroxyzine HCl (Hydroxyzine Hcl 25 Mg Tablet) 25 mg PO BEDTIME PRN PRN Reason: Anxiety Last Admin: 03/30/21 20:33 Dose: 25 mg Documented by: Magnesium Hydroxide (Milk Of Magnesia 30 Ml Oral.Susp) 30 ml PO DAILY PRN PRN Reason: Constipation Olanzapine (Olanzapine 10 Mg Tablet) 30 mg PO BEDTIME JUANJO Last Admin: 04/02/21 20:20 Dose: 30 mg Documented by: Trazodone HCl (Trazodone Hcl 50 Mg Tablet) 50 mg PO BEDTIME PRN PRN Reason: Insomnia Allergies Allergies Allergy/AdvReac Type Severity Reaction Status Date / Time peanut [PEANUTS] Allergy Severe ANAPHYLAXIS Verified 02/15/21 16:07 benztropine [From Cogentin] AdvReac Chest Pain Verified 02/16/21 13:12 Assessment & Plan Assessment & Plan (1) Schizoaffective disorder, bipolar type: Status: Acute Code(s): F25.0 - Schizoaffective disorder, bipolar type (2) Aggressive behavior, adult: Status: Acute Code(s): R46.89 - Other symptoms and signs involving appearance and behavior Assessment and Plan: Patient admitted on a conditional voluntary history this schizoaffective disorder unclear if patient has been taking olanzapine regularly has reportedly been physically aggressive and threatening toward his mother who he will edges has been forcing him not to move out so she can continue using his money. Patient denies thoughts of harm to others has [facility] case management. This point appears safe for patient to return home there is a history of longstanding complex relationship patient needs to be evaluated for safety to others admitted on a conditional PLAN:3 day notice, 15 minutes checks 1. Continue Olanzapine 30mg po qhs. Continue haldol 10mg po qhs. Consider mood stabilizer 2. Obtain collateral information 3. Aftercare planning coordination of care with [facility]. I spent minutes with the patient and/or on the patient floor today, greater than?50% of which was spent counseling/coordinating care. Reason for contiued inpatient stay Substantial Risk for: harm to others
[2021-04-02 18:00] VITALS: BP 141/91; PULSE 109; TEMP 36.6
[2021-04-02] MEDS: OLANZapine 10 MG TABLET 30 MG PO (20:20)
[2021-04-02] MEDS: HaloperidoL 5 MG TABLET 10 MG PO (20:21)
--- NOTE | 2021-04-03 11:09 | PC.NURSE ---
Pt retracted 3 day notice.TRAVIS LUCERO, Taylor pérez.
--- NOTE | 2021-04-03 17:16 | P.PNPSI_ITS ---
Subjective Subjective Date of Service: 04/03/21 Reason For Visit: psychotic agitation Subjective Notes: 3 Day Healthcare Proxy: No Guardianship: No Medical Problems Affecting Mental Status: No Interim History: I have nothing to say unless you are going to discharge me now. Are you? In bed, irritable upon approach, isolative. Denies any questions about treatment, interested in leaving, unable to engage around treatment goals so he will be able to discharge with improvement. Medication Compliance: Yes Side effects from medications: No Attending Groups: No Review of Systems Acute medical concerns: No Medical Review of Systems: unchanged Review of Systems Reports behavioral changes Psychiatric: Reports behavioral changes, Reports depression, Reports auditory hallucinations, Reports irritability, Reports anhedonia, Reports mood swings, Reports paranoia, Reports homicidal ideation ( Nope ) and Reports suicidal ideation ( No, really? ) Mental Status Exam Mental Status Exam Patient Appearance: Disheveled and Unkempt Patient Orientation: Person, Place and Situation Level of Consciousness: Alert Patient Behavior: Guarded, Suspicious, Resistive to Care, Avoidant, Distractible, Isolative and Poor Eye Contact Mood Description: Suspicious, Withdrawn, Depressed, Hostile and Angry Affect Description: Constricted Patient Cognition Impaired: No Ability to Follow Directions: Fair Speech Pattern: Spontaneous Speech Memory Description: Episodic Impaired Hallucinations: None (denies) Delusions: Paranoid Ideation Thought Process: Distracted Thought Content: positive for Circumstantial, positive for Perseveration and positive for Preoccupation Abnormal Motor Activity Signs and Symptoms: Agitation Judgement: Fair Diagnostics Vital Signs (24Hr): Vital Signs - 24 hr 04/02/21 18:00 Temperature 98 F Pulse Rate 109 H Blood Pressure 141/91 H BMI result Body Mass Index 36.0 Labs Results: 03/20/21 19:20 03/22/21 08:09 Medications Medications Current Medications Acetaminophen (Acetaminophen 325 Mg Tablet) 650 mg PO Q6H PRN PRN Reason: Headache/Pain Mild Scale (1-3) Al Hydroxide/Mg Hydroxide (Magnesium Hydrox/Alum Hydrox 30 Ml Oral.Susp) 30 ml PO Q6H PRN PRN Reason: Heartburn/Nausea Albuterol Sulfate (Albuterol Sulfate 90 Mcg 8 Gm Inhaler) 2 puff INHALE QID PRN PRN Reason: Wheezing Haloperidol (Haloperidol 5 Mg Tablet) 10 mg PO BEDTIME JUANJO Last Admin: 04/02/21 20:21 Dose: 10 mg Documented by: Hydroxyzine HCl (Hydroxyzine Hcl 25 Mg Tablet) 25 mg PO BEDTIME PRN PRN Reason: Anxiety Last Admin: 03/30/21 20:33 Dose: 25 mg Documented by: Magnesium Hydroxide (Milk Of Magnesia 30 Ml Oral.Susp) 30 ml PO DAILY PRN PRN Reason: Constipation Olanzapine (Olanzapine 10 Mg Tablet) 30 mg PO BEDTIME JUANJO Last Admin: 04/02/21 20:20 Dose: 30 mg Documented by: Trazodone HCl (Trazodone Hcl 50 Mg Tablet) 50 mg PO BEDTIME PRN PRN Reason: Insomnia Allergies Allergies Allergy/AdvReac Type Severity Reaction Status Date / Time peanut [PEANUTS] Allergy Severe ANAPHYLAXIS Verified 02/15/21 16:07 benztropine [From Cogentin] AdvReac Chest Pain Verified 02/16/21 13:12 Assessment & Plan Assessment & Plan (1) Schizoaffective disorder, bipolar type: Status: Acute Code(s): F25.0 - Schizoaffective disorder, bipolar type (2) Aggressive behavior, adult: Status: Acute Code(s): R46.89 - Other symptoms and signs involving appearance and behavior Assessment and Plan: Patient admitted on a conditional voluntary history this schizoaffective disorder unclear if patient has been taking olanzapine regularly has reportedly been physically aggressive and threatening toward his mother who he will edges has been forcing him not to move out so she can continue using his money. Patient denies thoughts of harm to others has [facility] case management. This point appears safe for patient to return home there is a history of longstanding complex relationship patient needs to be evaluated for safety to others admitted on a conditional PLAN:3 day notice, 15 minutes checks 1. Continue Olanzapine 30mg po qhs. Continue haldol 10mg po qhs. Consider mood stabilizer 2. Obtain collateral information 3. Aftercare planning coordination of care with [facility]. 04/03/21 Coverage: Continue current plan of care. I spent 20 minutes with the patient and/or on the patient floor today, greater than?50% of which was spent counseling/coordinating care. Patient educated on: other Informed Consent: understands Reason for contiued inpatient stay Substantial Risk for: harm to others, inability to function and rapid decompensation
[2021-04-03] MEDS: OLANZapine 10 MG TABLET 30 MG PO (20:30)
[2021-04-03] MEDS: HaloperidoL 5 MG TABLET 10 MG PO (20:30)
[2021-04-03 20:37] VITALS: BP 143/75; PULSE 104; RESP 16; TEMP 36.8; O2SAT 93
[2021-04-04 06:00] VITALS: BP 121/57; PULSE 90; RESP 14; TEMP 36.6; O2SAT 97
--- NOTE | 2021-04-04 16:54 | P.PNPSI_ITS ---
Subjective Subjective Date of Service: 04/04/21 Reason For Visit: psychotic agitation Interim History: Patient reports that he has doing okay. Denies depression and denies any SI; he shares that he misses his dog, a seymour/breakfast server color lab but otherwise feels fine. Patient reports continued auditory hallucinations but says they are not bothersome. He tells television writer that he does not think his mom will like the fact that he is on Haldol or least the Haldol Decanoate, but it is not clear why. Patient said that he is fine with it however. Patient reports he is sleeping well and staff reports that he is taking his medications regularly. Patient intermittently talking to his mother on the phone, sometimes getting into shouting matches. Patient retracted 3 day notice Mental Status Exam Mental Status Exam Narrative: Patient Appearance:?moderately Unkempt and mildly malodorous Patient Orientation:?Person, Place and Situation Level of Consciousness:?Alert Patient Behavior:?calm, cooperative, irritable edge but mostly friendly Mood Description:? ok but can be guarded Affect Description:?Constricted Patient Cognition Impaired:?No Ability to Follow Directions:?Fair Speech Pattern:?Spontaneous Speech Memory Description:?Episodic Impaired Hallucinations:?AH but says they are not bothersome Delusions:?Paranoid Ideation Thought Process:?goal oriented, organized Thought Content:? Denies SI/HI; misses his dog; thinking about his mother and how she will react is medication Abnormal Motor Activity Signs and Symptoms:? Intermittent agitation, often in the context of talking to his mother on the phone Judgement/insight:? Appears to be adequate Diagnostics Vital Signs (24Hr): Vital Signs - 24 hr 04/03/21 20:37 04/04/21 06:00 Temperature 98.2 F 97.8 F Pulse Rate 104 H 90 Respiratory Rate 16 14 Blood Pressure 143/75 H 121/57 L Pulse Oximetry 93 97 BMI result Body Mass Index 36.0 Labs Results: 03/20/21 19:20 03/22/21 08:09 Medications Medications Current Medications Acetaminophen (Acetaminophen 325 Mg Tablet) 650 mg PO Q6H PRN PRN Reason: Headache/Pain Mild Scale (1-3) Al Hydroxide/Mg Hydroxide (Magnesium Hydrox/Alum Hydrox 30 Ml Oral.Susp) 30 ml PO Q6H PRN PRN Reason: Heartburn/Nausea Albuterol Sulfate (Albuterol Sulfate 90 Mcg 8 Gm Inhaler) 2 puff INHALE QID PRN PRN Reason: Wheezing Haloperidol (Haloperidol 5 Mg Tablet) 10 mg PO BEDTIME JUANJO Last Admin: 04/03/21 20:30 Dose: 10 mg Documented by: Hydroxyzine HCl (Hydroxyzine Hcl 25 Mg Tablet) 25 mg PO BEDTIME PRN PRN Reason: Anxiety Last Admin: 03/30/21 20:33 Dose: 25 mg Documented by: Magnesium Hydroxide (Milk Of Magnesia 30 Ml Oral.Susp) 30 ml PO DAILY PRN PRN Reason: Constipation Olanzapine (Olanzapine 10 Mg Tablet) 30 mg PO BEDTIME JUANJO Last Admin: 04/03/21 20:30 Dose: 30 mg Documented by: Trazodone HCl (Trazodone Hcl 50 Mg Tablet) 50 mg PO BEDTIME PRN PRN Reason: Insomnia Allergies Allergies Allergy/AdvReac Type Severity Reaction Status Date / Time peanut [PEANUTS] Allergy Severe ANAPHYLAXIS Verified 02/15/21 16:07 benztropine [From Cogentin] AdvReac Chest Pain Verified 02/16/21 13:12 Assessment & Plan Assessment & Plan (1) Schizoaffective disorder, bipolar type: Status: Acute Code(s): F25.0 - Schizoaffective disorder, bipolar type (2) Aggressive behavior, adult: Status: Acute Code(s): R46.89 - Other symptoms and signs involving appearance and behavior Assessment and Plan: Patient admitted on a conditional voluntary history this schizoaffective disorder unclear if patient has been taking olanzapine regularly has reportedly been physically aggressive and threatening toward his mother who he will edges has been forcing him not to move out so she can continue using his money. Patient denies thoughts of harm to others has [facility] case management. This point appears safe for patient to return home there is a history of longstanding complex relationship patient needs to be evaluated for safety to others admitted on a conditional 04/03/21 Coverage: Continue current plan of care. 04/04/21 retracted 3 day notice; taking medication; seems to be stabilizing; denies medication side effects; denies depression; will attend to ADLs but only if prompted PLAN: CV (Rescinded 3 day notice on 04/04/21) 15 minutes checks -Continue Olanzapine 30mg po qhs. Continue haldol 10mg po qhs. Consider mood stabilizer -primary team to Obtain collateral information -Aftercare planning coordination of care with [facility]. I spent minutes with the patient and/or on the patient floor today, greater than?50% of which was spent counseling/coordinating care. Reason for contiued inpatient stay Substantial Risk for: rapid decompensation
[2021-04-04 19:55] VITALS: BP 138/91; PULSE 123; TEMP 36.3; O2SAT 95
[2021-04-04] MEDS: HaloperidoL 5 MG TABLET 10 MG PO (20:21)
[2021-04-04] MEDS: OLANZapine 10 MG TABLET 30 MG PO (20:21)
[2021-04-05 14:00] VITALS: BP 134/76; PULSE 120
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
[2021-04-05 17:35] VITALS: BP 153/72; PULSE 102
[2021-04-05] MEDS: OLANZapine 10 MG TABLET 30 MG PO (20:43)
[2021-04-05] MEDS: HaloperidoL 5 MG TABLET 10 MG PO (20:43)
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
[2021-04-06] MEDS: OLANZapine 10 MG TABLET 30 MG PO (20:44)
[2021-04-06] MEDS: HaloperidoL 5 MG TABLET 10 MG PO (20:45)
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
[2021-04-07] MEDS: OLANZapine 10 MG TABLET 30 MG PO (20:27)
[2021-04-07] MEDS: HaloperidoL 5 MG TABLET 10 MG PO (20:28)
[2021-04-07 20:30] VITALS: BP 128/86; PULSE 114; TEMP 36.8; O2SAT 95
[2021-04-08 06:00] VITALS: BP 111/58; PULSE 88; TEMP 36.4; O2SAT 97
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
[2021-04-08 17:20] VITALS: BP 147/83; PULSE 117; TEMP 36.8; O2SAT 95
[2021-04-08] MEDS: Albuterol Sulfate 90 MCG 8 GM INHALER 2 PUFF INHALE (19:48)
[2021-04-09 04:35] VITALS: BP 155/83; PULSE 109; TEMP 36.5; O2SAT 95
[2021-04-09 18:00] VITALS: BP 159/97; PULSE 114; TEMP 36.6
[2021-04-09] MEDS: HaloperidoL 5 MG TABLET 10 MG PO (20:02)
[2021-04-09] MEDS: OLANZapine 10 MG TABLET 30 MG PO (20:02)
[2021-04-10 06:00] VITALS: BP 138/82; PULSE 88; TEMP 36.6; O2SAT 95
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
== END 2021-04-10 13:34 | disposition home or self-care (01) | DRG 750 ==
LOC: HO.ED 03-21 15:54 → HO.PADLT16 03-21 16:54 → HO.PM5 03-26 16:55
PROVIDERS: Physician Assistant; Admitting Provider Psychiatry & Neurology Psychiatry; Emergency Provider Emergency Medicine; Visit Provider Social Worker
DX: F25.0 Schizoaffective disorder, bipolar type (principal); F17.210 Nicotine dependence, cigarettes, uncomplicated; Z71.6 Tobacco abuse counseling; Z20.822 Contact with and (suspected) exposure to COVID-19; Z79.899 Other long term (current) drug therapy
CPT/HCPCS: 36415; 80053; 80061; 80164; 80307; 82077; 85025; 87635; 93005; 99285

== ENCOUNTER 2021-04-26 13:15 | Emergency (ER) | payer OTHER, MEDICARE, MEDICAID, SELFPAY ==
[2021-04-26 13:21] VITALS: BP 152/75; PULSE 101; RESP 18; TEMP 36.7; O2SAT 97; BMI 29.8
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
[2021-04-26 14:11] LABS: COVID-19 Test Negative (Negative)
[2021-04-26 14:18] LABS: Amphetamine Screen Urine Not Detected (Not Detect); Barbiturates, Urine Not Detected (Not Detect); Benzodiazepines Screen Urine Not Detected (Not Detect); Cannabinoid Screen Urine POSITIVE (Not Detect); Cocaine Screen Urine Not Detected (Not Detect); Fentanyl, urine Not Detected (Not Detect); Opiate Screen Urine Not Detected (Not Detect); Phencyclidine Screen Urine Not Detected (Not Detect)
[2021-04-26 16:00] VITALS: RESP 22
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
== END 2021-04-26 18:09 | disposition home or self-care (01) ==
PROVIDERS: Emergency Provider Emergency Medicine
DX: F20.9 Schizophrenia, unspecified (principal); F33.1 Major depressive disorder, recurrent, moderate; F17.210 Nicotine dependence, cigarettes, uncomplicated; Z71.6 Tobacco abuse counseling; Z79.899 Other long term (current) drug therapy; Z20.822 Contact with and (suspected) exposure to COVID-19
CPT/HCPCS: 80307; 87635; 99285

== ENCOUNTER 2022-09-04 18:17 | Inpatient (IN) | payer MEDICARE, MEDICAID, SELFPAY ==
[2022-09-04 18:23] VITALS: BP 149/102; BP 162/90; PULSE 100; PULSE 88; RESP 18; TEMP 37; O2SAT 94; O2SAT 98; BMI 34.1
--- NOTE | 2022-09-04 18:26 | ECG_ITS ---
Test Reason : MEDICAL CLEARANCE Blood Pressure : / mmHG Vent. Rate : 086 BPM Atrial Rate : 086 BPM P-R Int : 168 ms QRS Dur : 096 ms QT Int : 378 ms P-R-T Axes : 079 079 020 degrees QTc Int : 452 ms Normal sinus rhythm with sinus arrhythmia Normal ECG When compared with ECG of 21-MAR-2021 13:29, No significant change was found Referred By: Silvia Shelton Electronically Signed By:SHAHBAZ POE MD
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
--- NOTE | 2022-09-04 18:34 | MHC.EDTECH ---
this write spoke with mom(Esther). mom passed along this number for contact. [phone].
[2022-09-04 18:39] VITALS: BP 149/102; PULSE 100; RESP 18; TEMP 37; O2SAT 94; BMI 34.1
[2022-09-04 19:07] LABS: MANUAL DIFF FLAG NO
[2022-09-04 19:09] LABS: Basophils Absolute Auto 0.1 X10*3/uL (0.0-0.2); Basophils Percent Auto 0.4 % (0-2); Eosinophils Absolute Auto 0.9 X10*3/uL (0.0-0.4); Hematocrit 45.3 % (42.0-52.0); Hemoglobin 15.3 g/dl (14.0-18.0); Imm Gran Abs Auto 0.05 X10*3/uL (0.00-0.03); Imm Gran Pct Auto 0.4 % (0.0-0.4); Lymphocytes Absolute Auto 2.8 X10*3/uL (1.2-4.9); Lymphocytes Percent Auto 25.1 % (20-40); Mean Corpuscular HGB Conc 33.8 g/dl (31.0-36.0); Mean Corpuscular Hemoglobin 30.3 pg (27.0-33.0); Mean Corpuscular Volume 89.7 fL (80.0-98.0); Mean Platelet Volume 10.8 fL (9.4-12.4); Monocytes Absolute Auto 0.8 X10*3/uL (0.1-1.2); Monocytes Percent Auto 7.5 % (2-11); Neutrophils Absolute Auto 6.6 x10*3/uL (2.0-8.3); Neutrophils Percent Auto 58.6 % (45-73); Platelet Count 252 X10*3/uL (160-400); Red Blood Count 5.05 X10*6/uL (4.60-5.80); Red Cell Distribution Width 13.8 % (11.0-16.0); White Blood Count 11.2 X10*3/uL (4.8-10.8)
[2022-09-04 19:21] LABS: Valproate 32.4 mcg/mL (50.0-100.0)
[2022-09-04 19:23] LABS: Ethanol < 10 mg/dL
[2022-09-04 19:25] LABS: Alanine Aminotransferase 20 U/L (0-40); Albumin Level 4.2 g/dL (3.5-5.0); Alkaline Phosphatase 75 U/L (39-117); Anion Gap 14 (12-20); Aspartate Amino Transferase 18 U/L (5-37); Bilirubin Direct < 0.1 mg/dL (0.0-0.5); Bilirubin Total 0.3 mg/dL (0.0-1.0); Blood Urea Nitrogen 10 mg/dL (9-16); Calcium 9.7 mg/dL (8.4-10.2); Carbon Dioxide 24 mmol/L (22-29); Chloride 106 mmol/L (96-108); Creatinine Clr Calc Pharmacy 164.8; Estimated Glomerular Filt Rate > 60; Glucose Random 119 mg/dL (60-115); Potassium 3.6 mmol/L (3.3-5.1); Sodium 140 mmol/L (135-145); Total Protein 7.9 g/dL (6.5-8.0)
[2022-09-04 20:12] LABS: Amphetamine Screen Urine Not Detected (Not Detect); Barbiturates, Urine Not Detected (Not Detect); Benzodiazepines Screen Urine Not Detected (Not Detect); Cannabinoid Screen Urine POSITIVE (Not Detect); Cocaine Screen Urine Not Detected (Not Detect); Fentanyl, urine Not Detected (Not Detect); Opiate Screen Urine Not Detected (Not Detect); Phencyclidine Screen Urine Not Detected (Not Detect)
[2022-09-04] MEDS: Divalproex Sodium 250 MG TABLET.DR 750 MG PO (20:43)
[2022-09-04] MEDS: OLANZapine ODT 10 MG TAB.RAPDIS TRANSLINGU (20:43)
[2022-09-04] MEDS: FLUoxetine HCl 20 MG CAPSULE 40 MG PO (20:43)
[2022-09-04] MEDS: Albuterol Sulfate 90 MCG 8 GM INHALER 2 PUFF INHALE (21:05)
[2022-09-05 06:32] VITALS: BP 147/65; PULSE 78; RESP 17; TEMP 37.1; O2SAT 97
--- NOTE | 2022-09-05 07:01 | PC.NURSE ---
PATIENT SLEPT THROUGH THE NIGHT, NO DISTRESS OBSERVED/REPORTED, MEDICATION COMPLIANT, LAB COMPLETED/RESULTED PENDING COVID TEST, ENGAGED WELL WITH CARE TEAM, DISPOSITION IS SECTION 12 INPATIENT BED SEARCH, BEHAVIOR NON CONCERNING, VSS, WILL CONTINUE TO MONITOR.
--- NOTE | 2022-09-05 07:14 | PC.NURSE ---
Resumed care of patient this morning, he is currently resting comfortably, pt is here on a section 12 for placement, awaiting care team this morning, all safety measures in place.
[2022-09-05] MEDS: FLUoxetine HCl 20 MG CAPSULE 40 MG PO (08:09)
[2022-09-05] MEDS: OLANZapine ODT 10 MG TAB.RAPDIS TRANSLINGU (08:09)
[2022-09-05 08:48] LABS: COVID-19 Test Negative (Negative); IDNOW Serial# 6674DD1D
--- NOTE | 2022-09-05 09:19 | PHA.MEDREC ---
Pharmacy Consult ? Medication Reconciliation Pharmacy has completed the medication reconciliation. Spoke to patient to confirm meds. Patient states that they don't know the dose of olanzapine 100% . Patient states that they only take it at bedtime and thinks it's the 20mg one . Called patient's pharmacy, however they are unable to verify which dose patient is on. Pharmacy states that only presctiption for olanzapine with refills is the 10mg ODT. However, leaving 20mg on med rec because patient states that they swallow their olanzapine, take at night, and think its the 20mg tablet.
[2022-09-05 12:30] VITALS: BP 136/86; PULSE 88; RESP 18; TEMP 37; O2SAT 98
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
[2022-09-05 14:36] VITALS: BMI 37.6
[2022-09-05] MEDS: OLANZapine 10 MG TABLET 20 MG PO (20:46)
[2022-09-05] MEDS: Divalproex Sodium 250 MG TABLET.DR 750 MG PO (20:46)
[2022-09-05] MEDS: Albuterol Sulfate 90 MCG 8 GM INHALER 2 PUFF INHALE (20:48)
[2022-09-05 20:50] VITALS: BP 165/82; PULSE 82; RESP 18; O2SAT 97
[2022-09-06 07:31] LABS: Alanine Aminotransferase 17 U/L (0-40); Albumin Level 3.8 g/dL (3.5-5.0); Alkaline Phosphatase 68 U/L (39-117); Anion Gap 12 (12-20); Aspartate Amino Transferase 17 U/L (5-37); Bilirubin Total 0.5 mg/dL (0.0-1.0); Blood Urea Nitrogen 10 mg/dL (9-16); Calcium 9.2 mg/dL (8.4-10.2); Carbon Dioxide 28 mmol/L (22-29); Chloride 104 mmol/L (96-108); Cholesterol 157 mg/dL; Creatinine Clr Calc Pharmacy 188.5; Estimated Glomerular Filt Rate > 60; Glucose Fasting 99 mg/dL (60-99); HDL Cholesterol 44 mg/dL; LDL Cholesterol Calculated 91 mg/dl; Potassium 3.9 mmol/L (3.3-5.1); Sodium 140 mmol/L (135-145); Triglycerides 114 mg/dL
[2022-09-06] MEDS: FLUoxetine HCl 20 MG CAPSULE 40 MG PO (08:46)
[2022-09-06] MEDS: OLANZapine ODT 10 MG TAB.RAPDIS TRANSLINGU (08:46)
[2022-09-06 09:10] VITALS: BP 137/70; PULSE 90; RESP 18; TEMP 36.7; O2SAT 95
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
[2022-09-06 18:30] VITALS: BP 145/86; PULSE 104; RESP 18; TEMP 36.9; O2SAT 95
[2022-09-06] MEDS: OLANZapine 10 MG TABLET 30 MG PO (21:28)
[2022-09-06] MEDS: Divalproex Sodium 500 MG TABLET.DR 1500 MG PO (21:28)
[2022-09-07] MEDS: OLANZapine ODT 10 MG TAB.RAPDIS TRANSLINGU (09:20)
[2022-09-07] MEDS: FLUoxetine HCl 20 MG CAPSULE 40 MG PO (09:20)
[2022-09-07 09:22] VITALS: BP 127/58; PULSE 93; RESP 18; TEMP 36.7; O2SAT 94
--- NOTE | 2022-09-07 14:34 | HO.PSYCHPN ---
Subjective Subjective Date of Service: 09/07/22 Reason For Visit: delusional Interim History: no complaints or concerns. sleeping late, but denies med changes too sedating. per staff, 3-day up . good appetite, good sleep. med-compliant. Mental Status Exam Mental Status Exam Narrative: Appearance: lying in bed, hospital gown, disheveled, fair hygiene in NAD psychomotor: no agitation or retardation noted Speech:clear, normal rate/rhythm, spontaneous. flattened prosody. Thought process: linear and logical Thought content: no delusions or paranoia expressed Affect: flat SI:none expressed HI:none expressed VH/AH: +AH of commentary on his life and actions Diagnostics Vital Signs (24Hr): Vital Signs - 24 hr 09/06/22 18:30 09/07/22 09:22 Temperature 98.4 F 98.0 F Pulse Rate 104 H 93 Respiratory Rate 18 18 Blood Pressure 145/86 H 127/58 L Pulse Oximetry 95 94 Oxygen Delivery Method Room Air Room Air BMI result Body Mass Index 37.6 Labs 09/04/22 19:02 09/06/22 07:00 Labs: Laboratory Results - last 48 hr 09/06/22 07:00 Sodium 140 Potassium 3.9 Chloride 104 Carbon Dioxide 28 Anion Gap 12 BUN 10 Creatinine 0.90 Estim Creat Clear Calc 188.5 Estimated GFR > 60 Fasting Glucose 99 Calcium 9.2 Total Bilirubin 0.5 AST 17 ALT 17 Alkaline Phosphatase 68 Total Protein 7.0 Albumin 3.8 Triglycerides 114 Cholesterol 157 LDL Cholesterol, Calc 91 HDL Cholesterol 44 Medications Medications Current Medications Acetaminophen (Acetaminophen 325 Mg Tablet) 650 mg PO Q6H PRN PRN Reason: Headache/Pain Mild Scale (1-3) Al Hydroxide/Mg Hydroxide (Magnesium Hydrox/Alum Hydrox 30 Ml Oral.Susp) 30 ml PO Q6H PRN PRN Reason: Heartburn/Nausea Albuterol Sulfate (Albuterol Sulfate 90 Mcg 8 Gm Inhaler) 2 puff INHALE QID PRN PRN Reason: Wheezing Last Admin: 09/05/22 20:48 Dose: 2 puff Divalproex Sodium (Divalproex Sodium 500 Mg Tablet.) 1,500 mg PO BEDTIME [facility] Last Admin: 09/06/22 21:28 Dose: 1,500 mg Fluoxetine HCl (Fluoxetine Hcl 20 Mg Capsule) 40 mg PO DAILY [facility] Last Admin: 09/07/22 09:20 Dose: 40 mg Hydroxyzine HCl (Hydroxyzine Hcl 25 Mg Tablet) 25 mg PO Q6H PRN PRN Reason: Anxiety Magnesium Hydroxide (Milk Of Magnesia 30 Ml Oral.Susp) 30 ml PO DAILY PRN PRN Reason: Constipation Nicotine Polacrilex (Nicotine Polacrilex 2 Mg Gum) 2 mg BUCCAL Q2H PRN PRN Reason: Nicotine Cravings Olanzapine (Olanzapine Odt 10 Mg Tab.Rapdis) 10 mg TRANSLINGU DAILY [facility] Last Admin: 09/07/22 09:20 Dose: 10 mg Olanzapine (Olanzapine 10 Mg Tablet) 30 mg PO BEDTIME [facility] Last Admin: 09/06/22 21:28 Dose: 30 mg Trazodone HCl (Trazodone Hcl 50 Mg Tablet) 50 mg PO BEDTIME MRX1 PRN PRN Reason: Insomnia Allergies Allergies Allergy/AdvReac Type Severity Reaction Status Date / Time peanut [PEANUTS] Allergy Severe ANAPHYLAXIS Verified 02/15/21 16:07 benztropine [From Cogentin] AdvReac Chest Pain Verified 02/16/21 13:12 Assessment & Plan Assessment & Plan (1) Schizoaffective disorder, bipolar type: Status: Acute Code(s): F25.0 - Schizoaffective disorder, bipolar type Plan 09/06: continue prozac 40 mg daily. increase zyprexa 20 mg QHS to 30 mg QHS. increase VPA 750 mg QHS to 1500 mg QHS. investigate alternate housing options. 09/07: tolerated med changes well. no complaints or requests. continue current mgmt. 3-day notice expires in 2 days. Reason for continued inpatient stay Substantial Risk for: harm to others and rapid decompensation Time Spent With Patient Time: Total time managing care of this patient today ____ minutes.
[2022-09-07] MEDS: Albuterol Sulfate 90 MCG 8 GM INHALER 2 PUFF INHALE (20:24)
[2022-09-07] MEDS: OLANZapine 10 MG TABLET 30 MG PO (20:25)
[2022-09-07] MEDS: Divalproex Sodium 250 MG TABLET.DR 750 MG PO (20:25)
[2022-09-07 20:30] VITALS: BP 142/82; PULSE 110; TEMP 36.2; O2SAT 95
[2022-09-08] MEDS: FLUoxetine HCl 20 MG CAPSULE 40 MG PO (09:15)
[2022-09-08] MEDS: Divalproex Sodium 250 MG TABLET.DR 750 MG PO ×2 (09:15→20:32)
[2022-09-08] MEDS: OLANZapine ODT 10 MG TAB.RAPDIS TRANSLINGU (09:15)
[2022-09-08 09:17] VITALS: BP 124/62; PULSE 80; RESP 18; TEMP 36.7; O2SAT 94
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
[2022-09-08 18:00] VITALS: BP 115/55; PULSE 87; RESP 18; TEMP 36.4; O2SAT 99
[2022-09-08] MEDS: OLANZapine 10 MG TABLET 30 MG PO (20:33)
[2022-09-08] MEDS: hydrOXYzine HCL 25 MG TABLET PO (23:15)
[2022-09-08] MEDS: traZODone HCL 50 MG TABLET PO (23:15)
[2022-09-09 07:00] VITALS: BMI 37.8
[2022-09-09] MEDS: FLUoxetine HCl 20 MG CAPSULE 40 MG PO (08:24)
[2022-09-09] MEDS: Divalproex Sodium 250 MG TABLET.DR 750 MG PO (08:24)
[2022-09-09] MEDS: OLANZapine ODT 10 MG TAB.RAPDIS TRANSLINGU (08:24)
[2022-09-09 09:23] VITALS: BP 126/73; PULSE 81; RESP 18; TEMP 36.6; O2SAT 94
== END 2022-09-09 11:55 | disposition home or self-care (01) | DRG 885 ==
LOC: HO.ED 19:44 → HO.PADLT16 09-05 12:15
PROVIDERS: Admitting Provider Psychiatry & Neurology Psychiatry; Emergency Provider Emergency Medicine; PCP Hospitalist; Visit Provider Psychiatry & Neurology Psychiatry
DX: F25.0 Schizoaffective disorder, bipolar type (principal); F17.210 Nicotine dependence, cigarettes, uncomplicated; Z71.6 Tobacco abuse counseling; Z20.822 Contact with and (suspected) exposure to COVID-19; Z79.899 Other long term (current) drug therapy
CPT/HCPCS: 36415; 80048; 80053; 80061; 80076; 80164; 80307; 85025; 87635; 93005; 99285

== ENCOUNTER 2022-11-02 11:12 | Outpatient (REF) | payer MEDICARE, MEDICAID, SELFPAY ==
[2022-11-02 13:31] LABS: MANUAL DIFF FLAG NO
[2022-11-02 13:55] LABS: Basophils Absolute Auto 0.1 X10*3/uL (0.0-0.2); Basophils Percent Auto 0.6 % (0-2); Eosinophils Absolute Auto 0.8 X10*3/uL (0.0-0.4); Hematocrit 45.6 % (42.0-52.0); Hemoglobin 15.4 g/dl (14.0-18.0); Imm Gran Abs Auto 0.03 X10*3/uL (0.00-0.03); Imm Gran Pct Auto 0.3 % (0.0-0.4); Lymphocytes Absolute Auto 2.3 X10*3/uL (1.2-4.9); Lymphocytes Percent Auto 23.7 % (20-40); Mean Corpuscular HGB Conc 33.8 g/dl (31.0-36.0); Mean Corpuscular Hemoglobin 30.3 pg (27.0-33.0); Mean Corpuscular Volume 89.6 fL (80.0-98.0); Mean Platelet Volume 10.7 fL (9.4-12.4); Monocytes Percent Auto 10.4 % (2-11); Neutrophils Absolute Auto 5.5 x10*3/uL (2.0-8.3); Platelet Count 257 X10*3/uL (160-400); Red Blood Count 5.09 X10*6/uL (4.60-5.80); Red Cell Distribution Width 13.2 % (11.0-16.0); White Blood Count 9.6 X10*3/uL (4.8-10.8)
[2022-11-02 14:11] LABS: Alanine Aminotransferase 17 U/L (0-40); Albumin Level 4.3 g/dL (3.5-5.0); Alkaline Phosphatase 59 U/L (39-117); Anion Gap 11 (12-20); Aspartate Amino Transferase 18 U/L (5-37); Bilirubin Direct 0.2 mg/dL (0.0-0.5); Bilirubin Total 0.4 mg/dL (0.0-1.0); Blood Urea Nitrogen 12 mg/dL (9-16); Calcium 9.5 mg/dL (8.4-10.2); Carbon Dioxide 27 mmol/L (22-29); Chloride 105 mmol/L (96-108); Cholesterol 153 mg/dL; Estimated Glomerular Filt Rate > 60; Glucose Fasting 101 mg/dL (60-99); HDL Cholesterol 49 mg/dL; LDL Cholesterol Calculated 85 mg/dl; Potassium 4.1 mmol/L (3.3-5.1); Sodium 139 mmol/L (135-145); Total Protein 8.2 g/dL (6.5-8.0); Triglycerides 96 mg/dL
[2022-11-02 14:26] LABS: Valproate 87.4 mcg/mL (50.0-100.0)
[2022-11-02 14:30] LABS: Thyroid Stimulating Hormone 1.52 uIU/mL (0.32-4.0)
== END 2022-11-02 11:13 | disposition home or self-care (01) ==
LOC: HO.HMGCLDS 11:12
PROVIDERS: Visit Provider Psychiatry & Neurology Psychiatry
DX: Z79.899 Other long term (current) drug therapy (principal)
CPT/HCPCS: 36415; 80048; 80061; 80076; 80164; 84443; 85025